=== PATIENT | male | born 1995 | race Caucasian/White ===

== ENCOUNTER 2023-10-15 21:53 | Emergency (ER) | payer MEDICAID, SELFPAY ==
--- NOTE | ~2023-10-15 | XR_ITS ---
EXAMINATION: XR chest 2V DATE: 10/16/2023 01:04 INDICATION: Intermittent chest tightness TECHNIQUE: PA and lateral views of the chest were obtained. COMPARISON: None FINDINGS: Azygos lobe and fissure at the right upper lung zone. No other airspace opacities, pulmonary edema, p leural effusion or pneumothorax. The cardiomediastinal silhouette is normal. Small amount of excreted contrast seen at the left renal collecting system from the immediately prior contrast enhanced CT of the abdomen and pelvis. Bones are unremarkable. IMPRESSION: 1. No acute cardiopulmonary disease. Reviewed, dictated and finalized at location A. TE CONTROL MIRROR INSTALLER
--- NOTE | ~2023-10-15 | CT_ITS ---
EXAMINATION: CT abdomen pelvis w con DATE: 10/16/2023 01:03 INDICATION: n/v/d, WBC count 25 TECHNIQUE: Computed tomography (CT) of the abdomen and pelvis was performed with 100 mL Omnipaque-350 intravenous contrast. Automated exposure control and iterative reconstruction technique were employe d. The dose-length product was 269.59 mGy-cm. COMPARISON: None. FINDINGS: Lower thorax: Unremarkable Liver: Normal. Biliary/Gallbladder: Gallbladder is normal. No bile duct dilation. Pancreas: No mass or duct dilation. Spleen: Normal. Adrenals:No mass. Kidneys: Absent right kidney. No suspicious mass or calcification in the right kidney. Mild right pel vocaliectasis. GI tract: No small or large bowel dilation. Normal appendix. Mesentery/Peritoneum: No ascites, mass, or free air. Retroperitoneum: No mass. Pelvis: Pelvic organs are within normal limits. Soft Tissues: Soft tissues and body wall unremarkable. Bones: No acute osseous finding. IMPRESSION: No acute abdominal pelvic process detected. Reviewed, dictated and finalized at location K. T ECOLOGIST
--- NOTE | 2023-10-15 21:55 | ECG_ITS ---
Measurements Intervals [place] Rate: 121 P: 76 OK: 152 QRS: 98 QRSD: 81 T: 57 QT: 330 QTc: 469 Interpretive Statements SINUS TACHYCARDIA BORDERLINE RIGHT AXIS DEVIATION [QRS AXIS > 90] ABNORMAL RHYTHM ECG NO PREVIOUS ECG AVAILABLE FOR COMPARISON Electronically Signed On 10-16-2023 8:07:10 BUCKLE COVERER by Yoel Phelps M.D.
[2023-10-15 21:56] VITALS: BP 107/75; PULSE 116; RESP 20; TEMP 36; O2SAT 99
[2023-10-15 22:22] LABS: Basophils Absolute Auto 0.1 K/mm3 (0.0-0.1); Basophils Percent Auto 0.4 % (0.2-1.2); Eosinophils Absolute Auto 0.1 K/mm3 (0-0.3); Eosinophils Percent Auto 0.2 % (0-4.4); Hematocrit 53.5 % (42.0-52.0); Hemoglobin 17.5 g/dL (14.0-18.0); Immature Granulocyte Absolute 0.14 K/mm3 (0.00-0.031); Immature Granulocyte Percent A 0.5 % (0-0.5); Lymphocytes Absolute Auto 1.12 K/mm3 (0.9-3.2); Lymphocytes Percent Auto 4.3 % (18.3-44.2); Mean Corpuscular HGB Conc 32.7 g/dl (32-36); Mean Corpuscular Hemoglobin 29.9 pg (26-34); Mean Corpuscular Volume 91.3 fl (80-100); Mean Platelet Volume 9.8 fl (7.4-10.4); Monocytes Absolute Auto 1.6 K/mm3 (0.1-0.6); Monocytes Percent Auto 6.2 % (2.6-8.5); Neutrophils Absolute Auto 22.7 K/mm3 (1.3-6.7); Neutrophils Percent Auto 88.4 % (45.5-73.1); Platelet Count Result 297 k/mm3 (150-375); Red Blood Count 5.86 M/mm3 (4.6-6.20); Red Cell Distribution Width 12.4 % (11.5-14.5); White Blood Count 25.8 K/mm3 (4.5-10.0)
[2023-10-15 22:33] LABS: Alanine Aminotransferase 19 U/L (6-50); Albumin Level 5.4 g/dL (3.5-5.1); Alkaline Phosphatase 77 U/L (38-126); Anion Gap 10 mmol/L (8-16); Aspartate Amino Transferase 28 U/L (17-59); Bilirubin,Total 0.8 mg/dL (0.2-1.3); Blood Urea Nitrogen 22 mg/dL (9-20); Calcium 10.5 mg/dL (8.4-10.2); Carbon Dioxide 29 mmol/L (22-30); Chloride 101 mmol/L (98-107); Estimated CRCL calculation 88 ml/min; Estimated Glomerular Filt Rate > 60; Glucose 141 mg/dL (65-110); Lipase 48 U/L (23-300); Potassium 4.1 mmol/L (3.4-5.0); Sodium 140 mmol/L (137-145)
[2023-10-15 22:40] LABS: Appearance Urine Clear (Clear); Bacteria Urine None Seen /hpf; Bilirubin Urine Negative (Negative); Blood Urine Negative (Negative); Color Urine Yellow (Yellow); Glucose Urine UA Negative (Negative); Ketones Urine Trace mg/dL (Negative); Leukocyte Esterase Ur Negative LEU/UL (Negative); Need Manual Microscopic Reviewed; Nitrate Urine Negative (Negative); Protein Urine 1+ mg/dL (Negative); RBC Urine 0-2 /hpf (0-2); Specific Grav Ur 1.024 (1.001-1.035); Squamous Epithelial Cell Urine None seen /hpf (Few); Urobilinogen Urine 0.2 mg/dL (<2.0); WBC Urine 0-5 /hpf; pH Urine 5.5 (5.0-9.0)
[2023-10-15 22:52] LABS: Add Urine Microscopic? YES
[2023-10-15 22:59] LABS: Influenza A QL RT-PCR Negative (Negative); Influenza B QL RT-PCR Negative (Negative); RSV RNA, RT-PCR Negative (Negative); SARS-CoV-2 RNA PCR Negative (Negative)
[2023-10-15 23:41] VITALS: BP 139/86; PULSE 111; RESP 16; TEMP 37.1; O2SAT 95
[2023-10-15 23:43] VITALS: BP 136/84; PULSE 104
[2023-10-15 23:45] VITALS: BP 121/88; PULSE 118
[2023-10-15 23:46] VITALS: BP 109/69; PULSE 133
[2023-10-16] VITALS (13 sets, daily range): BP systolic 86–133; BP diastolic 44–86; PULSE 84–132; RESP 15–16; O2SAT 97–100
--- NOTE | 2023-10-16 00:24 | ED.NAVMDI ---
HPI - Nausea/Vomiting/Diarrhea General Chief complaint: Nausea/Vomiting/Diarrhea <Ethel Lee PA-C - Last Filed: 10/16/23 04:18> Stated complaint: chest pain, N/V/D <Ethel Lee PA-C - Last Filed: 10/16/23 04:18> Time Seen by Provider: 10/16/23 00:11 <Ethel Lee PA-C - Last Filed: 10/16/23 04:18> History of Present Illness HPI Narrative: 28-year-old male with a known history of right sided renal agenesis reports for evaluation for nausea, vomiting and diarrhea that started today after eating dairy Vickers today at lunch. Patient states he did spicy cheeseburger and shortly after began developing nausea, vomiting diarrhea. Reports multiple episodes of emesis and watery diarrhea. States vomiting diarrhea has since resolved he continues to feel nauseous. He reports intermittent chest tightness in the epigastrium and right inferior chest for the past few days. States this is worse when eating spicy foods and pizza sauce. Describes the chest pain is ?bubbles?. Denies current chest pain. Patient states he has concern for reflux. Denies hematemesis, melena or hematochezia, cough or congestion, fever. Reports generalized abdominal discomfort but denies pain. States he feels fatigued and has generalized body aches from vomiting as well as a headache. <Ethel Lee PA-C - Last Filed: 10/16/23 04:18> Related Data Allergies/Adverse reactions: Allergies Allergy/AdvReac Type Severity Reaction Status Date / Time Penicillins Allergy Unknown HIVES Verified 10/15/23 21:59 <Ethel Lee PA-C - Last Filed: 10/16/23 04:18> Review of Systems Review of Systems: CONSTITUTIONAL: Denies fever, chills, or sweats. EYES: Denies visual changes, redness, or discharge. ENT: Denies rhinorrhea, congestion, sore throat, or otalgia. CARDIOVASCULAR: Denies chest pain, palpitations, or edema. RESPIRATORY: Denies cough or dyspnea. GASTROINTESTINAL: See HPI GENITOURINARY: Denies dysuria or hematuria. SKIN: Denies rash or itching. MUSCULOSKELETAL: Denies back pain, joint pain, or myalgia. NEUROLOGIC: Denies headache, numbness, or weakness. PSYCHIATRIC: Denies anxiety or depression. <Ethel Lee PA-C - Last Filed: 10/16/23 04:18> Exam Narrative: GENERAL: Well-appearing, well-nourished, and in no acute distress. HEAD: Normocephalic, atraumatic. EYES: PERRLA and EOMI. ENT: Nares clear, no rhinorrhea or epistaxis. Mucous membranes moist. NECK: Supple. CHEST: Clear to auscultation. No respiratory distress. HEART: Regular rate and rhythm. No murmur heard. Normal peripheral pulses. ABDOMEN: Normoactive bowel sounds. Abdomen soft with generalized tenderness. No guarding, rebound or rigidity. Negative Barboza's and McBurney's. No CVA tenderness. EXTREMITIES: Normal range of motion. No edema. SKIN: Warm, dry, no rash. NEURO: No focal deficits. Alert and oriented x3. Cranial nerves 2-12 intact. Strength 5/5 in BUE and BLE. Sensation intact throughout. Normal elaage-cm-pkjh. No pronator drift. <Ethel Lee PA-C - Last Filed: 10/16/23 04:18> Course DUDE WRANGLER/PA Physician Supervision For this patient encounter, I reviewed the DUDE WRANGLER or PA documentation, treatment plan, and medical decision making and I had [id number] time with this patient. I performed all aspects of the MDM as documented. <Erick Pichardo DO - Last Filed: 10/16/23 06:47> Vital Signs Vital signs: Vital Signs Temperature 96.8 F L 10/15/23 21:56 Pulse Rate 116 H 10/15/23 21:56 Respiratory Rate 20 10/15/23 21:56 Blood Pressure 107/75 10/15/23 21:56 Pulse Oximetry 99 10/15/23 21:56 Oxygen Delivery Room Air 10/15/23 21:56 Temperature 98.8 F 10/15/23 23:41 Pulse Rate 84 10/16/23 04:12 Respiratory Rate 16 10/16/23 04:12 Blood Pressure 110/57 L 10/16/23 04:12 Pulse Oximetry 99 10/16/23 04:12 Oxygen Delivery Room Air 10/15/23 21:56 <Ethel Lee PA-C - Last Filed
[2023-10-16] MEDS: SODIUM CHLORIDE 0.9% IV 1,000 ML 999 ML IV CONT ×4 (00:43→03:35)
[2023-10-16] MEDS: diphenhydrAMINE HCl INJ 50 MG/ML VIAL 25 MG IV PUSH (00:43)
[2023-10-16] MEDS: KETOROLAC 30 MG/ML VIAL (*BKC) IV PUSH (00:44)
[2023-10-16] MEDS: PROCHLORPERAZINE EDISYLATE 10 MG/2 ML VIAL IV PUSH (00:45)
[2023-10-16 01:14] LABS: Magnesium 2.1 mg/dL (1.6-2.3)
[2023-10-16 01:22] LABS: Troponin I < 0.012 ng/mL (0.000-0.034)
[2023-10-16 01:31] LABS: Lactic Acid Reflex 1.1 mmol/L (0.7-2.0)
== END 2023-10-16 04:28 | disposition home or self-care (01) ==
PROVIDERS: Student in an Organized Health Care Education/Training Program; Emergency Provider Physician Assistant
DX: K52.9 Noninfective gastroenteritis and colitis, unspecified (principal); K21.9 Gastro-esophageal reflux disease without esophagitis; E86.0 Dehydration; D72.829 Elevated white blood cell count, unspecified; Z20.822 Contact with and (suspected) exposure to COVID-19; Q60.0 Renal agenesis, unilateral
CPT/HCPCS: 36415; 71046; 74177; 80053; 81001; 83605; 83690; 83735; 84484; 85025; 87637; 93005; 96361; 96374; 96375; 99284; J0780; J1200; J1885; J7030; Q9967

== ENCOUNTER 2024-10-05 16:04 | Emergency (ER) | payer BC, SELFPAY ==
--- NOTE | ~2024-10-05 | XR_ITS ---
EXAMINATION: XR chest 2V DATE: 10/05/2024 16:48 INDICATION: Influenza. Chest discomfort. TECHNIQUE: PA and lateral views of the chest were obtained. COMPARISON: Chest radiograph dated 10/16/2023 FINDINGS: Normal variant azygos lobe and fissure in the right upper lung zone. No airspace opacities, pulmonary edema, pleural effusion or pneumothorax. The cardiomediastinal silhouette is normal. Visualized bone s and soft tissues are unremarkable. IMPRESSION: 1. No acute cardiopulmonary disease. Reviewed, dictated and finalized at location B. [facility]
--- OUTSIDE RECORDS SUMMARY | 2024-10-05 16:08 | XMS_ITS | Data Portability ---
Author Organization [place] - [facility], [facility] Address [address] [place] [id number] Care Team Providers Care Jackhammer Operator Name Role Phone TE ROSE Primary Care Provider Assessment No assessment recorded. Plan of Treatment Reminders Order Date Submit Date Provider Last Modified By Organization Details Last Modified Time Details Appointments None recorded. Lab rapid SARS CoV + SARS CoV 2 Ag, QL IA, respiratory specimen [address], [address] [place] [address], [id number], 4 13:04:44 rapid flu (A+B) [address], [address] [place] [address], [address], 4 13:05:09 rapid strep group A, throat [address], [address] [place] [address], [address], 4 13:04:33 urinalysis, dipstick, auto 2023 024 [email or web address] [facility], [address] [place] [address], [address], 4 12:16:03 culture, urine 2023 024 [facility] Registration Dept[facility] [address] [place] [address], [address], 4 12:48:24 rapid flu (A+B) 2024 025 [email or web address]9 8 [facility], [address] [place] [address], [address], 5 09:46:57 rapid SARS CoV + SARS CoV 2 Ag, QL IA, respiratory specimen 2024 025 [email or web address]9 8 [facility], [address] [place] [address], [address], 5 09:57:46 Referral None recorded. Procedures None recorded. Surgeries None recorded. Imaging XR, cervical spine, 2 or 3 view 2023 024 [place] [address] 0 [facility] Registration Dept., [address] [place] [address], [address], 4 09:37:14 XR, lumbar spine 2023 024 [place] [address] [facility] Registration Dept., [address] [place] [address], [address], 4 09:37:14 Medication Orders Zithromax Z-Denis 250 mg tablet [email or web address] [place] [address] Pharm[address] [place], [address], 4 11:35:32 oseltamivir 75 mg capsule 2024 025 [id number], [address], [place], [id number], 5 09:57:44 Patient TargetsNo targets recorded. Patient InstructionsNo instructions recorded. Reason for Referral None Reported. Results Created Date Observation Date Name Description Value Unit Range Abnormal Flag Note LastModifiedBy Organization Detail LastModifiedTime 10/18/1910/18/2023 rapid flu (A+B) influenza A negati ve negati ve normal Not Available [address], [address], 10/18/2023 12:50:54 10/18/19 24 10/18/2023 rapid flu (A+B) influenza B negati ve negati ve normal Not Available [address], [address], 10/18/2023 12:50:54 10/18/19 24 10/18/2023 rapid flu (A+B) control accept able accept able Not Available [address], [address], 10/18/2023 12:50:54 10/18/19 24 10/18/2023 rapid SARS CoV + SARS CoV 2 Ag, QL IA, respi rator y speci men id now covid 19 negati ve negati ve Not Available [address], [address], 10/18/2023 12:50:53 10/18/19 24 10/18/2023 rapid strep group A, throa t STREP A negati ve Not Available [address], [address], 10/18/2023 12:32:33 10/18/19 24 10/18/2023 rapid strep group A, throa t Strep negati ve Not Available [address], [address], 10/18/2023 12:32:33 07/18/20 24 07/18/2024 urina lysis , dipst ick, auto Leukocytes (reference Rage: Negative seema/mcg) Negati ve Not Available [address], [address], 07/18/2024 11:36:22 07/18/20 24 07/18/2024 urina lysis , dipst ick, auto Nitrite (reference rage: Negative mg/dL) negati ve Not Available [address], [address], 07/18/2024 11:36:22 07/18/20 24 07/18/2024 urina lysis , dipst ick, auto Urobilinogen (reference range: 0.2-1 ng/dL) 0.2 Not Available [address], [address], 07/18/2024 11:36:22 07/18/20 24 07/18/2024 urina lysis , dipst ick, auto Protein (reference range: negative mg/dL): Negati ve Not Available [address], [address], 07/18/2024 11:36:22 07/18/20 24 07/18/2024 urina lysis , dipst ick, auto pH (reference range: 5-7) 7.5 Not Available [address], [address], 07/18/2024 11:36:22 07/18/20 24 07/18/2024 urina lysis , dipst ick, auto Blood (reference range: negative Negati ve Not Available [address], [address], 07/18/2024 11:36:22 07/18/20 24 07/18/2024 urina lysis , dipst ick, auto Specific Rose (reference range 1.005-1.030) 1.015 Not Available [address], [address], 07/18/2024 11:36:22 07/18/20 24 07/18/2024 urina lysis , dipst ick, auto Ketone (reference range: negative mg/dL) Negati ve Not Available [address], [address], 07/18/2024 11:36:22 07/18/20 24 07/18/2024 urina lysis , dipst ick, auto Bilirubin (reference range: negative mg/dL) Negati ve Not Available [address], [address], 07/18/2024 11:36:22 07/18/20 24 07/18/2024 urina lysis , dipst ick, auto Glucose (reference range: negative mg/dL) Negati ve Not Available [address], [address], 07/18/2024 11:36:22 07/18/20 24 07/18/2024 urina lysis , dipst ick, auto Appearance Clear Not Available [address], [address], 07/18/2024 11:36:22 07/18/20 24 07/18/2024 urina lysis , dipst ick, auto Color Yellow Not Available [address], [address], 07/18/2024 11:36:22 10/03/19 25 10/03/2024 rapid SARS CoV + SARS CoV 2 Ag, QL IA, respi rator y speci men id now covid 19 negati ve negati ve Not Available [address], [address], 10/03/2024 09:32:30 10/03/19 25 10/03/2024 rapid flu (A+B) influenza A positi ve negati ve abnormal Not Available [address], [address], 10/03/2024 09:32:09 10/03/19 25 10/03/2024 rapid flu (A+B) influenza B negati ve negati ve normal Not Available [address], [address], 10/03/2024 09:32:09 10/03/19 25 10/03/2024 rapid flu (A+B) control accept able accept able Not Available [address], [address], 10/03/2024 09:32:09 Result Notes None recorded. Problems Name Problem SNOMED Code Status Onset Date Resolution Date Notes Provider Name and Address Organization Details Recorded Time Pain in throat 982966303 Active 024 Alyssa daily, [facility] 4 12:32:34 Low back pain 225772425 Active 024 Alyssa Holder ENVIRONMENTAL EDUCATION SPECIALIST [address] [place] [address], [address] , [facility] 4 12:14:49 Neck pain 67208044 Active 024 Alyssa Holder ENVIRONMENTAL EDUCATION SPECIALIST [address] [place] [address], [address] , [facility] 4 12:19:16 Fever 659842262 Active 025 Radha daily, [facility] 5 09:32:17 Influenza caused by Influenza A virus 379716597 Active 025 Yasmine Ferro, ENVIRONMENTAL EDUCATION SPECIALIST [address] [place] [address], [address] , [facility] 5 09:46:36 Problem Notes None recorded. Procedures Surgical History Date Name Laterality Status Provider Name and Address Organization Details Recorded Time Tonsillectomy completed Fanny Cain [facility] 07/18/2024 11:43:16 Imaging Results None recorded. Procedure Notes None recorded. Medical Equipment None Reported. Allergies Allergen ID Allergen Name Allergen Category Reaction Reaction Severity Criticality Documentation Date Start Date Code Code System Note Provider Name and Address Organization Details Recorded Time Product containin g penicilli n and antibioti c (product) medicatio n hives Not available Not available 10/18/2023 80080 05 SNOMED Alyssa Sweet [facility] 4 12:30:48 Medications Name Sig Start Date Stop Date Status Note LastModified by Organization Details LastModified Time azithromycin 250 mg tablet TAKE 2 TABLETS BY MOUTH ON DAY 1, AND THEN TAKE 1 TABLET BY MOUTH ONCE A DAY ON DAY 2 THROUGH DAY 5 07/18 completed Not Available Not Available Not Available hydrocodone 5 mg-acetamino phen 325 mg tablet TAKE 1 TABLET BY MOUTH EVERY 6 HOURS NEEDED 10/18 completed Not Available Not Available Not Available hydrocodone 7.5 mg-acetamino phen 325 mg tablet TAKE 1 TABLET BY MOUTH EVERY 6 HOURS NEEDED 10/18 completed Not Available Not Available Not Available oseltamivir 75 mg capsule Take 1 capsule twice a day by oral route for 5 days. 2024 active Not Available Not Available Not Avai lable Vitals Date Recorded Body height Body mass index (BMI) Body weight Body temperature Heart rate Oxygen saturation Oxygen saturation in Arterial blood by Pulse oximetry Respiratory rate Pain severity - 0-10 verbal numeric rating [Score] - Reported Systolic blood pressure Diastolic blood pressure Provider Name and Address Organization Details Last Updated DateTime 4 180.34 cm 23.7 kg/m2 12804.7 g 97.4 [degF] 68 /min 98 % 98 % 16 /min 4 112 mm[Hg] 82 mm[Hg] Alyssa Sweet [facility] 4 12:23:44 Date Recorded Body height Pain severity - 0-10 verbal numeric rating [Score] - Reported Body mass index (BMI) Body weight Body temperature Heart rate Respiratory rate Oxygen saturation Oxygen saturation in Arterial blood by Pulse oximetry Systolic blood pressure Diastolic blood pressure Provider Name and Address Organization Details Last Updated DateTime 4 180.34 cm 4 23.7 kg/m2 17164.7 g 97.4 [degF] 61 /min 18 /min 99 % 99 % 108 mm[Hg] 72 mm[Hg] Fanny Cain [facility] 4 11:42:33 Date Recorded Body height Body mass index (BMI) Body weight Body temperature Heart rate Respiratory rate Oxygen saturation Oxygen saturation in Arterial blood by Pulse oximetry Systolic blood pressure Diastolic blood pressure Provider Name and Address Organization Details Last Updated DateTime 5 180.34 cm 23.4 kg/m2 92155.5 2 g 99.8 [degF] 107 /min 18 /min 97 % 97 % 140 mm[Hg] 70 mm[Hg] Radha Jaison [facility] 5 09:34:29 Social History Question Answer Notes LastModified by Organizat ion Details LastModified Time Tobacco Smoking Status Never Smoker Alyssa daily [facility] 10/18/2023 12:31:24 What Is Your Level Of Alcohol Consumption? None Information not available 10/18/2023 What Is Your Level Of Caffeine Consumption? Occasional Information not available 10/18/2023 In The 14 Days Before Symptom Onset, Have You Had Close Contact With A Laboratory-confirm ed COVID-19 While That Case Was Ill? No Information n ot available 10/18/2023 In The 14 Days Before Symptom Onset, Have You Had Close Contact With A Person Who Is Under Investigation For COVID-19 While That Person Was Ill? No Information not available 10/18/2023 Do You Feel Hopeless Or Helpless No Information not available 10/18/2023 Have You Had Thoughts Of Suicide? No Information not available 10/18/2023 Are You Having Any Suicidal Thoughts Now? No Information not available 10/18/2023 Have You Previously Attempted Suicide? No Information n ot available 10/18/2023 Do You Have A Plan To Hurt Yourself Or Others? No Information not available 10/18/2023 Has A Family Member Or Someone Close To You Committed Suicide Or Have You Been A Witness To Suicide? No Information not available 10/18/2023 Have You Fallen In The Last 3 Months? No Information n ot available 10/18/2023 What Was The Date Of Your Most Recent Tobacco Screening? 10/03/2024 [email or web address] Information not available 10/03/2024 Have You Recently Traveled Abroad? No Information not available 10/18/2023 Do You Or Have You Ever Used Any Other Forms Of Tobacco Or Nicotine? No [email or web address] Information not available 07/18/2024 Sex: Unknown Functional Status None recorded. Mental Status None recorded. Family History Nothing Reported. Medical History No medical history recorded. Past Encounters Encounter ID Performer Location Encounter Start Date Encounter Closed Date Diagnosis/Indication Diagnosis SNOMED-CT Code Diagnosis ICD10 Code Diagnosis Note [id number] Jacquelyn Sharp NP [address] [address] 10/18/2023 12:14:59 10/18/2023 13:39:30 Pain in throat 691353953 R07.0 see above Exposure t o streptococcal pharyngitis 4580125421 105 Z20.818 Entire family has strep throatStar t abxIncreas e PO fluidsYou are contagious for at least 24 hours after starting antibiotic s or after your fever is goneUse simple analgesics (ibuprofen or acetaminop hen per age), salt water gargles or lozenges.S ymptomatic family members should seek medical attention. Replace your old toothbrush after you have been on the antibiotic s for 3 daysDo not drink or eat after other peopleRTC if no improvemen tER precaution s advised [id number] Alyssa Holder NP [address] [address] 07/18/2024 11:02:53 07/19/2024 05:49:05 Low back pain 838207405 M54.50 -likely 2/2 MSK-UA negative POC testing, will send for culture-he does have 1 kidney and has had previous infection- recommend to take tylenol athritis versus ibuprofenX ray pending-lo w back is tight Neck pain 50439723 M54.2 likely MSK, positionin g and recent fallno deformityt ight musclesrec ommend APAP vs NSAIDXray pending [id number] Yasmine Ferro NP [address] [address] 10/03/2024 09:07:24 10/04/2024 04:19:39 Fever 148737263 R50.9 -COVID-19- .-See note above. Influenza caused by Influenza A virus 739502572 J09.X2 -Influenza A+. Viral/self limited etiology discussed. BP, HR elevated likely d/t acute illness, otherwise vital signs WNL w/ no findings suggestive of emergent etiology at this time.-Pt to rest, drink plenty of fluids/janay ctrolytes, and may take OTC acetaminop hen/ibupro fen as needed for fever/pain if not contraindi cated. Additional OTC symptomati c treatments discussed. -Pt to begin medication as prescribed . Medication education provided.- Pt to follow-up w/ PCP or return to clinic if symptoms fail to improve, sooner for worsening. Red flag symptoms and when to seek emergency care discussed. -Pt verbalizes understand ing and is agreeable to plan of care. Health Concerns Section Related Observation LastModified by Organization Detai ls LastModified Time None Recorded Concern Status LastModified by Organization Details LastModified Time None Recorded Advance Directives Directive None Recorded Payers Encounter Date Sequence Insurance Name Policy Number Policy Magaña Covered Member ID Magaña Member ID Guarantor Name 10/18/2023 1 [place] [id number] Yahir Torrez [id number] [employer] Torrez 07/18/2024 1 [place] [id number] Yahir Torrez [id number] Yahir Torrez 07/18/2024 2 [place] [employer] [place] Yahir Torrez [id number] Yahir Torrez 10/03/2024 1 [place] [id number] Yahir Torrez [id number] Yahir Torrez 10/03/2024 2 [place] Yahir Torrez [id number] Yahir Torrez Notes Date Note Type Note Provider Name and Address Organization Details Recorded Time 10/18/2023 text/html 28 y/o male pres ents to clinic today for a sore throat, MERCADO. body aches,ONSET: last nightOTC: tylenol Jacquelyn Sharp ENVIRONMENTAL EDUCATION SPECIALIST [address] [facility], [place], [address], [facility] 10/18/2023 13:13:14 07/18/2024 text/html 29 y/o male pres ents for low back pain, pt only has 1 kidney, was born with only one, the left he thinks. 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, sometimes pain from low back to neck.Sometimes looking down onto phone or turning head feels tightness in his neck.H/O kidney stone and infection 8 years agoThis has been ongoing for a week, takes ibuprofen occasionally for thisOf note he did fall off of a ladder 2-3 months onto his right side and did not need any immediate treatmentEndorses he does not drink enough fluid Alyssa Holder ENVIRONMENTAL EDUCATION SPECIALIST [address] [place], [address], [facility] 07/18/2024 19:48:17 10/03/2024 text/html 29 y/o male pres ents in clinic c/o productive cough, fever, congestion, chills, MERCADO, and sore throat that began yesterday. Pt reports appropriate fluid intake and is urinating adequately. Pt denies hx chronic respiratory disease other than mild childhood asthma. Pt has taken OTC ibuprofen w/ some relief. Yasmine Ferro NP [address] [place] [address], [address], [facility] 10/03/2024 10:01:46
--- OUTSIDE RECORDS SUMMARY | 2024-10-05 16:08 | XMS_ITS | Clinical Summary ---
Author Organization [facility] Address [address] [facility] [place] [address] Care Team Providers Care Components Engineer Name Role Phone Yoel Nieves MD Primary Care Provider [phone] Source Comments [facility],non-[facility] Affiliates and Associated Physician Practices is amultiple site organization consisting of ambulatory clinics and hospital sitesin [place], [place], [place] and [place]. This disclosure is being madepursuant to the Care Everywhere program and may not contain all information available regarding this patient. Last updated 18.[facility] Allergies Active Allergy Reactions Criticality Noted Date Comments Penicillins Urticaria Medium 09/11/2017 Medications * Be aware that medications may not be up to date on this document. Alwaysverify current medications with the patient. 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 (F LUZONE; FLULAVAL; FLUARIX; AFLURIA QUADRIVALENT; 6MO+), 0.5 ML (IIV4) 06/02/2021,07/10/2020,08/16/2019,06/26,06/27/2017 MENINGOCOCCAL CONJUGATE (MCV4P) 11/04/2016 MMR 11/10/2016 POLIO IPV 11/04/2016 TDAP (7yrs+) 11/04/2016 Family History Medical History Relation Name Comments Diabetes; unknown type Maternal Aunt Diabetes - Type 1 Mother Renal Disease Mother Relation Name Status Comments Father Maternal Aunt Mother Alive Social History Tobacco Use Types Packs/Day Years Used Date Smoking Tobacco: Former Cigarettes Q uit: 2021 Smokeless Tobacco: Never Tobacco Cessation:Counseling Given: Not Answered Alcohol Use Standard Drinks/Week Comments Yes 0 (1 standard drink = 0.6 oz pur e alcohol) PHQ-2 Answer Date Recorded Patient Health Questionnaire-2 Score 0 03/29/2024 Sex and Gender Information Value Date Recorded Sex Assigned at Male 03/24/2024 7:57 PM CDT Gender Identity Male 03/24/2024 7:57 PM CDT Sexual Orientation Not on file Last Filed Vital Signs Vital Sign Reading Time Taken Comments Blood Pressure 117/70 05/08/2024 11:05 AM CDT Pulse 66 05/08/2024 11:05 AM CDT Temperature 37 C (98.6 F) 03/29/2024 9:41 AM CDT Respiratory Rate 20 04/25/2024 9:22 AM CDT Oxygen Saturation 100% 05/08/2024 11:05 AM CDT Inhaled Oxygen Concentration - - Weight 76.4 kg (168 lb 6.4 oz) 05/08/2024 11:05 AM CDT Height 177.8 cm (5' 10 ) 05/08/2024 11:05 AM CDT Body Mass Index 24.16 05/08/2024 11:05 AM CDT Plan of Treatment Health Maintenance Due Date Last Done Comments COVID-19 VACCINE ( season) 2024 INFLUENZA VACCINE (#1) 2024 , 07/10/2020, 08/16/2019, Additional history exists DEPRESSION SCREENING 08/29/2024 03/29/2024, 01/12/20 23 DTAP/TDAP/TD VACCINES (2 - Td or Tdap) 11/04/2026 11/04/2016 ZOSTER VACCINE (1 of 2) 02/26/2046 MENINGOCOCCAL VACCINE Aged Out 11/04/2016 No ayo andrey eligible based on patient's age to complete this topic HEPATITIS B VACCINE Completed 06/29/2017, 12/20/2016, 11/10/2016 HPV VACCINE Completed 03/15/2018, 09/2017, 06/29/2017 HEPATITIS C SCREENING Discontinued HIB VACCINE Aged Out No longer eligi ble based on patient's age to complete this topic HIV SCREENING Discontinued MENINGOCOCCAL (Group B) VACCINE Aged Out No longer eligible based on patient's age to complete this topic PNEUMOCOCCAL VACCINE Aged Out No long er eligible based on patient's age to complete this topic Care Teams Components Engineer Relationship Specialty Start Date End Date Yoel Nieves MD [address] [phone] PCP - General Family Medicine 03/29/24
--- OUTSIDE RECORDS SUMMARY | 2024-10-05 16:08 | XMS_ITS | Patient Health Summary ---
Author Organization [facility] Address [address] [place] [address] Care Team Providers Care Sap Technical Developer Name Role Phone Yoel Nieves MD Primary Care Provider [phone] Note from [facility],non-owned Affiliates and Associated Physician Practices is amultiple site organization consisting of ambulatory clinics and hospital sitesin [place], [place], [place] and [place]. This disclosure is being madepursuant to the Care Everywhere program and may not contain all information available regarding this patient. Last updated 18.[facility] Allergies * Penicillins(Urticaria) -Medium Criticality Medications * Be aware that medications may not be up to date on this document. Alwaysverify current medications with the patient. 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 (FLUZONE; FLULAVAL; FLUARIX; AFLURIA QUADRIVALENT; 6MO+), 0.5 ML (IIV4)(Given 06/02/2021, 07/10/2020, 08/16/2019, 06/26/2018, 06/27/2017) * MENINGOCOCCAL CONJUGATE (MCV4P)(Given 11/04/2016) * MMR(Given 11/10/2016) * POLIO IPV(Given 11/04/2016) * TDAP (7yrs+)(Given 11/04/2016) Social History Tobacco Use Types Packs/Day Years [...] Mass Index 24.16 05/08/2024 11:05 AM CDT Procedures * IMAGING/RADIOLOGY/XRAY RESULTS ORDER(Performed 05/22/2024) * TSH(Performed 05/10/2024) Performed for Low glucose level * BASIC METABOLIC PANEL (CALCIUM TOTAL)(Performed 05/10/2024) Performed for Low glucose level * METANEPHRINES FRACTIONATED PLASMA(Performed 05/10/2024) Performed for Low glucose level * CORTISOL BLOOD AM(Performed 05/10/2024) Performed for Low glucose level * IMAGING/RADIOLOGY/XRAY RESULTS ORDER(Performed 05/01/2024) * MRI BRAIN WO CONTRAST(Performed 05/01/2024) Performed for Acute intractable headache, unspecified headache type * IMAGING/RADIOLOGY/XRAY RESULTS ORDER(Performed 04/16/2024) * URIC ACID BLOOD(Performed 03/29/2024) * ERYTHROCYTE SEDIMENTATION RATE(Performed 03/29/2024) Performed for Acute foot pain, right * HEMOGLOBIN A1C(Performed 03/29/2024) Performed for Family history of diabetes mellitus * COMPREHENSIVE METABOLIC PANEL(Performed 03/29/2024) Performed for Acute foot pain, right, Family history of diabetes mellitus * CBC W AUTO DIFFERENTIAL(Performed 03/29/2024) Performed for Acute foot pain, right * TSH REFLEX FREE T4(Performed 01/12/2023) Performed for Hyperglycemia without ketosis * HEMOGLOBIN A1C(Performed 01/12/2023) Performed for Hyperglycemia without ketosis * COMPREHENSIVE METABOLIC PANEL(Performed 01/12/2023) Performed for Hyperglycemia without ketosis * CBC W AUTO DIFFERENTIAL(Performed 01/12/2023) Performed for Hyperglycemia without ketosis * CULTURE URINE(Performed 01/11/2023) Performed for Hyperglycemia without ketosis * URINALYSIS - POINT OF CARE(Performed 01/11/2023) Performed for Hyperglycemia without ketosis * STREP A SCREEN - POCT (IP) URGENT CARE(Performed 09/11/2017) Performed for Sore throat Results * IMAGING RADIOLOGY XRAY RESULTS ORDER (05/22/2024) Only the most recent of3 resultswithin the time period is included. Anatomical Region Laterality Modality Other 05/22/2024 Narrative 05/22/2024 Ordered by an unspecified provider. Scanned Document IMAGING * METANEPHRINES FRACTIONATED PLASMA (05/10/2024 6:47 AM CDT) Metanephrine Fract Free 29 <=57 pg/mL [facility] Comment: This test was developed and its analytical performance characteristics have been determined by [employer] [place]. It has not been cleared or approved by the U.S. Food and Drug Administration. This assay has been validated pursuant to the CLIA regulations and is used for clinical purposes. Normetanephrine Free 58 <=148 pg/mL [facility] Comment: This test was developed and its analytical performance characteristics have been determined by [employer] [place]. It has not been cleared or approved by the U.S. Food and Drug Administration. This assay has been validated pursuant to the CLIA regulations and is used for clinical purposes. Free Metanephrine + Normetanephrine 87 <=205 pg/mL [facility] Comment: For additional information, please refer to http://education.Car[employer]/faq/MetFractFree (This link is being provided for informational/educatio informational/educational purposes only.) Elevations >4-fold upper reference range: strongly suggestive of a pheochromocytoma(1). Elevations >1- 4-fold upper reference range: significant but not diagnostic, may be due to medications or stress. Suggest running 24 hr urine fractionated metanephrines and/or serum Chromagranin A for confirmation. Reference: (1)Jenna Tan et al, Plasma Chromogranin A or Urine Fractionated Metanephrines Follow-Up Testing Improves the Diagnostic Accuracy of Plasma Fractionated Metanephrines for Pheochromocytoma. The Journal of Clinical Endocrinology # Metabolism 93(1), 91-95, 2008. This test was developed and its analytical performance characteristics have been determined by [employer] [place] [place]. It has not been cleared or approved by the U.S. Food and Drug Administration. This assay has been validated pursuant to the CLIA regulations and is used for clinical purposes. Test Performed at: [employer] [facility] MAI STAFFORD MD,PHD Blood BLOOD SPECIMEN / Unknown 05/10/2024 6:47 AM CDT 05/10/2024 6:47 AM CDT Erika Yin MD LAB - CHEMISTRY OR DERABLES Performing Organization Address [facility] Co de Phone Number [facility] [phone] [place], [place] [phone] * BASIC METABOLIC PANEL (BMP) (05/10/2024 6:47 AM CDT) Pathologist [facility] Glucose 86 65 - 99 mg/dL [facility] Comment: Fasting reference interval BUN 14 7 - 25 mg/dL [facility] Creatinine 1.03 0.60 - 1.24 mg/dL [facility] eGFR by Cystatin C 101 > OR = 60 mL/min/1. 73m2 [facility] BUN/Creatinine Ratio SEE NOTE: (calc) [facility] Comment: Not Reported: BUN and Creatinine are within reference range. Sodium 140 135 - 146 mmol/L [facility] Potassium 4.1 3.5 - 5.3 mmol/L [facility] Chloride 106 98 - 110 mmol/L [facility] CO2 29 20 - 32 mmol/L [facility] Calcium 9.2 8.6 - 10.3 mg/dL [facility] Comment: Test Performed at: [employer] [place] [id number] OCTAVIANO ABDUL MD Blood BLOOD SPECIMEN / Unknown 05/10/2024 6:47 AM CDT 05/10/2024 6:47 AM CDT Erika Yin MD LAB - CHEMISTRY OR DERABLES Performing Organization Address [facility] [place] [address] * TSH (05/10/2024 6:47 AM CDT) [facility] TSH 2.52 0.40 - 4.50 mIU/L [facility] Comment: Test Performed at: [facility] [address] [employer] [facility] [phone] OCTAVIANO ABDUL MD Blood BLOOD SPECIMEN / Unknown 05/10/2024 6:47 AM CDT 05/10/2024 6:47 AM CDT Erika Yin MD LAB - CHEMISTRY OR DERABLES Performing Organization Address [facility] [place] [address] * CORTISOL BLOOD AM (05/10/2024 6:47 AM CDT) Pathologist [facility] Cortisol AM 19.9 mcg/dL [facility] Comment: Reference Range 8 a.m. (7-9 a.m.) Specimen: 4.0-22.0 Test Performed at: [facility] [address] [place] [address] OCTAVIANO ABDUL MD Blood BLOOD SPECIMEN / Unknown 05/10/2024 6:47 AM CDT 05/10/2024 6:47 AM CDT Erika Yin MD LAB - CHEMISTRY OR DERABLES Performing Organization Address [facility] Co de Phone Number [facility] [address] [place] [address] * MRI Brain Wo Contrast (05/01/2024) Anatomical Region Laterality Modality Head Magnetic Resonan ce 05/01/2024 Fanny Ramirez [employer] MR ORDERABLES * URIC ACID BLOOD (03/29/2024 10:09 AM CDT) [facility] Uric Acid 5.5 4.0 - 8.0 mg/dL [facility] Comment: Therapeutic target for gout patients: <6.0 mg/dL Test Performed at: [facility] [place] [address] OCTAVIANO ABDUL MD 03/29/2024 10:0 9 AM CDT 03/29/2024 10:09 AM CDT Vinny Merrill [employer] LAB - CHEMISTR Y ORDERABLES Performing Organization Address [facility] Co de Phone Number [facility] [address] [place] [address] * HEMOGLOBIN A1C (HgbA1C) (03/29/2024 10:09 AM CDT) Only the most recent of2 resultswithin the time period is included. [facility] Hemoglobin A1c 5.3 <5.7 % of total Hgb [facility] Comment: For the purpose of screening for the presence of diabetes: <5.7% Consistent with the absence of diabetes 5.7-6.4% Consistent with increased risk for diabetes (prediabetes) > or =6.5% Consistent with diabetes This assay result is consistent with a decreased risk of diabetes. Currently, no consensus exists regarding use of hemoglobin A1c for diagnosis of diabetes in children. According to [place] Diabetes Association (ADA) guidelines, hemoglobin A1c <7.0% represents optimal control in non- diabetic patients. Different metrics may apply to specific patient populations. Standards of Medical Care in Diabetes(ADA). This test was performed on the Sunil nayeli c503 platform. Effective 11/14/23, a change in test platforms from the [employer] to the Sunil nayeli c503 may have shifted HbA1c results compared to historical results. Based on laboratory validation testing conducted at [facility], the Sunil platform relative to the Grimaldo platform had an average increase in HbA1c value of < or = 0.3%. This difference is within accepted variability established by the National Glycohemoglobin Standardization Program. Note that not all individuals will have had a shift in their results and direct comparisons between historical and current results for testing conducted on different platforms is not recommended. REPORT COMMENT: FASTING:NO Test Performed at: [facility] [address] OCTAVIANO ABDUL MD Blood BLOOD SPECIMEN / Unknown 03/29/2024 10:09 AM CDT 03/29/2024 10:09 AM CDT Vinny Merrill [employer] LAB - CHEMISTR Y ORDERABLES [address] [address] * SED RATE AUTO (ESR) (03/29/2024 10:09 AM CDT) Erythrocyte Sedimentation Rate Westergren 2 < OR = 15 mm/h [facility] Comment: Test Performed at: [employer] [facility] [address] [address] OCTAVIANO ABDUL MD Blood BLOOD SPECIMEN / Unknown 03/29/2024 10:09 AM CDT 03/29/2024 10:09 AM CDT Vinny Up Merrill [employer] LAB - HEMATOLO GY ORDERABLES [facility] [address] [place] [address] * CBC WITH DIFFERENTIAL (03/29/2024 10:09 AM CDT) Only the most recent of2 resultswithin the time period is included. White Blood Cell Count 8.0 3.8 - 10.8 Thousand/u L [facility] RBC 5.07 4.20 - 5.80 Million/uL [facility] Hemoglobin 15.3 13.2 - 17.1 g/dL [facility] Hematocrit 46.6 38.5 - 50.0 % [facility] MCV 91.9 80.0 - 100.0 fL [facility] MCH 30.2 27.0 - 33.0 pg [facility] MCHC 32.8 32.0 - 36.0 g/dL [facility] RDW 12.0 11.0 - 15.0 % [facility] Platelet Count 248 140 - 400 Thousand/u L [facility] MPV 10.2 7.5 - 12.5 fL [facility] Neutrophil Absolute 4200 1500 - 7800 cells/uL [facility] Absolute Bands [facility] Metamyelocytes Absolute [facility] Myelocytes Absolute [facility] Absolute Prolymphocytes [facility] Lymphocytes Absolute 3000 850 - 3900 cells/uL [facility] Absolute Monocytes 672 200 - 950 cells/uL [facility] Eosinophils Absolute 80 15 - 500 cells/uL [facility] Basophils Absolute 48 0 - 200 cells/uL [facility] Absolute Blasts [facility] nRBC Absolute [facility] Granulocytes % 52.5 % [facility] Band Neutrophil [facility] Metamyelocytes [facility] Myelocytes [facility] Promyelocytes [facility] Lymphocytes % 37.5 % [facility] Lymphocyte Reactive [facility] Monocytes % 8.4 % [facility] Eosinophils % 1.0 % [facility] Basophils % 0.6 % [facility] Comment: Test Performed at: [employer] [place] [address] OCTAVIANO ABDUL MD Blasts [facility] nRBC [facility] Comments [facility] Comment: Test Performed at: [facility] [address] [facility] [place] [address] OCTAVIANO ABDUL MD Blood BLOOD SPECIMEN / Unknown 03/29/2024 10:09 AM CDT 03/29/2024 10:09 AM CDT Vinny Merrill [employer] LAB - HEMATOLO GY ORDERABLES Performing Organization Address [facility] Co de Phone Number [facility] [address] [place] [address] * (ABNORMAL) COMPREHENSIVE METABOLIC PANEL (03/29/2024 10:09 AM CDT) Only the most recent of2 resultswithin the time period is included. Glucose 47(L) 65 - 139 mg/dL [facility] Comment: Non-fasting reference interval BUN 15 7 - 25 mg/dL [facility] Creatinine 1.05 0.60 - 1.24 mg/dL [facility] eGFR by Cystatin C 99 > OR = 60 mL/min/1. 73m2 [facility] BUN/Creatinine Ratio SEE NOTE: 6 - 22 (calc) [facility] Comment: Not Reported: BUN and Creatinine are within reference range. Sodium 142 135 - 146 mmol/L [facility] Potassium 4.2 3.5 - 5.3 mmol/L [facility] Chloride 104 98 - 110 mmol/L [facility] CO2 35(H) 20 - 32 mmol/L [facility] Calcium 9.7 8.6 - 10.3 mg/dL [facility] Protein Total 6.8 6.1 - 8.1 g/dL [facility] Albumin 4.4 3.6 - 5.1 g/dL [facility] Globulin Total 2.4 1.9 - 3.7 g/dL (calc) [facility] Albumin/Globulin Ratio 1.8 1.0 - 2.5 (calc) [facility] Bilirubin Total 0.4 0.2 - 1.2 mg/dL [facility] Alkaline Phosphatase 47 36 - 130 U/L [facility] AST 12 10 - 40 U/L [facility] ALT 9 9 - 46 U/L [facility] Comment: Test Performed at: [facility] [id number] [place] [id number] OCTAVIANO ABDUL MD Blood BLOOD SPECIMEN / Unknown 03/29/2024 10:09 AM CDT 03/29/2024 10:09 AM CDT Vinny Merrill APRN-[employer] LAB - CHEMISTR Y ORDERABLES Performing Organization Address [facility] Co de Phone Number [facility] [address] [place] [address] * TSH REFLEX FREE T4 (01/12/2023 6:48 AM CDT) [facility] TSH with Reflex FT4 1.67 0.40 - 4.50 mIU/L [facility] Comment: Test Performed at: [employer] [facility] [place] [address] [address] OCTAVIANO ABDUL MD Blood BLOOD SPECIMEN / Unknown 01/12/2023 6:48 AM CDT 01/12/2023 6:48 AM CDT Vinny Merrill [employer] LAB - CHEMISTR Y ORDERABLES [facility] [address] [place] [address] * CULTURE URINE (01/11/2023 4:09 PM CDT) [facility] Urine Culture Routine Final report [facility] ACCOUNT BILL Result 1 [facility] ACCOUNT BILL Comment: Culture shows less than 10,000 colony forming units of bacteria per milliliter of urine. This colony count is not generally considered to be clinically significant. Urine URINE SPECIMEN OBTAINED BY CLEAN CATCH PROCEDURE / Unknown 01/11/2023 4:09 PM CDT 01/11/2023 Narrative Resulting Agency Comment Lab Testing performed at: [facility] [address] [id number] Vinny Merrill [employer] LAB - MICROBIO LOGY ORDERABLES [facility] ACCOUNT BILL [address] [place] [address] * URINALYSIS - POINT OF CARE (01/11/2023 4:01 PM CDT) [facility] Clarity UA POCT CLEAR [facility] Color UA POCT YELLOW [facility] Leukocyte UA NEG Negative [facility] [place] Nitrite UA POCT NEG Negative [facility] Urobilinogen UA 0.2 0.1 - 1.0 [facility] Protein UA POCT NEG Negative [facility] pH UA 7.5 5.0 - 8.0 pH units [facility] [place] Blood UA NEG Negtive [facility] [place] Specific [place] UA POCT 1.010 1.002 - 1.030 [facility] Ketone UA NEG Negative [facility] Bilirubin UA POCT NEG Negative [facility] Glucose UA NEG Negative [facility] Urine URINE / Unknown 01/11/2023 4 :01 PM CDT Vinny Merrill [employer] LAB - POINT OF CARE ORDERABLES [facility] [address] [address], [facility] [phone] * (ABNORMAL) STREP A SCREEN - POCT (IP) URGENT CARE (09/11/2017 10:55 AM [facility]) Strep A Rapid POCT Positive(A ) Negative [facility] POCT TESTING QC Verified Yes Yes [facility] POC T TESTING Throat ENTIRE THROAT (SURFACE REGION OF NECK) / Unknown 09/11/2017 10:55 AM [facility] [employer] Mayra Santoyo [employer] LAB - POINT O F CARE ORDERABLES [facility] POCT TESTING [address] [phone] Care Teams Sap Technical Developer Relationship Specialty Start Date End Date Yoel Nieves MD [address] [address] PCP - General Family Medicine 03/29/24
--- OUTSIDE RECORDS SUMMARY | 2024-10-05 16:08 | XMS_ITS | Continuity of Care Document ---
Author Name [facility] Organization [facility] Care Team Providers Care Life Sciences Manager Name Role Phone [facility] Unavailable Unavailable Problems Combined list of problems from Department of Defense and Veterans Affairs facilities. It does not include entries that were removed or entered in error. Problem Status Onset Date Problem Type Date of Resolution Comme nts Source Renal agenesis, unilateral Active 12/21/2018 Condition DoD Tobacco use Active 09/14/2017 Condition DoD Low back pain Active Condition DoD Allergies, Adverse Reactions, Alerts Combined list of allergies from Department of Defense and Veterans Affairs facilities. It does not include entries that were removed or entered in error. Substance Category Reaction Severity Reaction type Status Date Reported Comments Source Penicillins Drug allergy (disorder) Rash active 7 [place] [address] Immunizations Combined list of available immunizations from the Department of Defense and Veterans Affairs facilities. 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 Source Influenza, injectable, quadrivalent, preservative free 1 2020 [id number] [employer] (SKB) complet ed Influenza , injectabl e, quadrival ent, preservat cely free DoD SARS-COV-2 (COVID-19) vaccine, UNSPECIFIED 0 2020 213 () Not Given SARS-COV- 2 (COVID-19 ) vaccine, UNSPECIFI ED DoD Influenza, injectable, quadrivalent, preservative free 0 2019 [id number] 150 Seqirus (SEQ) complet ed Influenza , injectabl e, quadrival ent, preservat cely free DoD Influenza, injectable, quadrivalent, preservative free 1 2018 150 Transcribed (TRS) complet ed Influenza , injectabl e, quadrival ent, preservat cely free DoD Influenza, injectable, quadrivalent, preservative free 0 2017 [id number] 150 [employer]irus (SEQ) comple t ed Influenza , injectabl e, quadrival ent, preservat cely free DoD Human Papillomaviru s 9-valent vaccine 3 2017 [id number] 165 Merck (MSD) complet ed Human Papilloma virus 9-valent vaccine DoD Human Papillomaviru s 9-valent vaccine 2 2017 [id number] 165 Merck (MSD) complet ed Human Papilloma virus 9-valent vaccine DoD hepatitis A and hepatitis B vaccine 3 2016 [id number] 104 [facility] ([facility]) complet ed hepatitis A and hepatitis B vaccine DoD Human Papillomaviru s 9-valent vaccine 1 2016 [id number] 165 Merck (MSD) complet ed Human Papilloma virus 9-valent vaccine DoD Influenza, injectable, quadrivalent, preservative free 0 2016 [id number] 150 [facility] ([facility]) complet ed Influenza , injectabl e, quadrival ent, preservat cely free DoD hepatitis A and hepatitis B vaccine 1 2016 [id number] 104 [facility] ([facility]) complet ed hepatitis A and hepatitis B vaccine DoD measles, mumps and rubella virus vaccine 1 2016 [id number] 03 Merck (MSD) complet ed measles, mumps and rubella virus vaccine DoD hepatitis A and hepatitis B vaccine 1 2016 [id number] 104 [facility] ([facility]) complet ed hepatitis A and hepatitis B vaccine DoD poliovirus vaccine, inactivated 1 2016 [id number] 10 Sanofi Pasteur ([facility]) complet ed polioviru s vaccine, inactivat ed DoD meningococcal polysaccharid e (groups A, C, Y and W-135) diphtheria toxoid conjugate vaccine (MCV4P) 1 2016 [id number] 114 Sanofi Pasteur ([facility]) complet ed meningoco ccal polysacch aride (groups A, C, Y and W-135) diphtheri a toxoid conjugate vaccine (MCV4P) DoD tetanus toxoid, reduced diphtheria toxoid, and acellular pertu is vaccine, adsorbed 1 2016 [id number] 115 [facility] tetanus toxoid, reduced diphtheri a toxoid, and acellular pertussis vaccine, adsorbed DoD Influenza, seasonal, injectable, preservative free 1 2016 [id number] 140 Seqirus (SEQ) comple t ed Influenza , seasonal, injectabl e, preservat cely free DoD Adenovirus, type 4 and type 7, live, oral 1 2016 [id number] 143 [facility] (BRR) complet ed Adenoviru s, type 4 and type 7, live, oral DoD measles virus vaccine 0 2016 05 () Not Given measles virus vaccine DoD mumps virus vaccine 0 2016 07 () Not Given mumps virus vaccine DoD varicella virus vaccine 0 2016 21 () Not Given varicella virus vaccine DoD Encounters Combined list of: 1) Encounters from Department of Veterans Affairs facilities going backup to the last 18 months, not all VA inpatient encounters are included; 2) Encounters from the Department of Defense facilities going backup to 280 months. Location Location Details Encounter Type Encounter Number Reason For Visit Attending Provider ADM Date DC Date Status Disposition [place] [address](Hea ring Conservat ion, BMT) OUTPATIENT [id number] ZAK FITZGERALD I 11/11 [facility]ased w/o Limitations [facility] [place] [address](H earing Conserv ation, BMT) [place] [address]([facility]) OUTPATIENT [id number] Notes Entered by: TOR BAEZA 12 Nov 2016 1248 ------- ------- ------- ------- -- Strep prophyl axis SYDNIE BAEZA 11/12 [facility] w[facility] Limitations [facility] [place] [address](Critical access hospital d) [employer]([facility] OUTPATIENT [id number] Notes Entered by: Demetris BRITT 17 Feb 2017 1239 ------- ------- ------- ------- -- OUTPROC NAZ MCINTYRE 02/17 Released w/o Limitations [employer]) [facility] [employer] [place]Bas e Operation al Medicine Clin) OUTPATIENT [id number] Notes Entered by: Alberto FINN 22 Apr 2017 0818 ------- ------- ------- ------- -- Tri Service PHA Non Camacho BLACKWELLVALERIEART 04/22 Released w/o Limitations [address] [place] [address] [facility])(B ase Operati onal Medicin e Clin) [address] [place] [address])(Sco tt [facility] Fam Res Tm Green) TELE CONSULT [id number] Notes Entered by: BRIE ADAMS 16 Jun 2017 0730 ------- ------- ------- ------- -- Sx: Chrissie galindo, body aches - Van - - tsg* ROSALIE ISMS 06/[address] [place] [address])(S cott [facility] Fam Res Tm Green) [address] [place] [address])(Sco tt [facility] FAMRES Tm Blue) OUTPATIENT [id number] R eye puffy w/drain age, sinus pressur e/conge stion [id number] MAURISIO MARTINEZ 08/02 Released w/o Limitations [address] [place] [address])(S cott [facility] FAMRES Tm Blue) [address] [place] [address])(Bas e Operation al Medicine Clin) OUTPATIENT [id number] Notes Entered by: ROBBIE COWAN 05 Aug 2017 0748 ------- ------- ------- ------- -- TRI-SER NON NIHARIKA TOURE 08/05 Released w/o Limitations [address] [place] [address])(B ase Operati onal Medicin e Clin) [address] [place] [address])(Sco tt [facility] Fam Res Tm Green) TELE CONSULT [id number] Notes Entered by: JARVIS MARSHALL RET 13 Sep 2017 0710 ------- ------- ------- ------- -- [facility] FU/Andres e/ ROBBIE Maddox 09/13 Referred for Appointment [address] [place] [address] [facility]S cott [facility] Fam Res Tm Green) [address] [place] [address] [facility]Sco tt [facility] FAMRES Tm Blue) OUTPATIENT [id number] [facility] follow- up: discuss frequen t strep and possibl e tonsil removal BRENTJOSE HERNANDEZ Dominick 09/13 Released w/o Limitations [address] [place] [address] Stanley [facility])(S cott [facility] FAMRES Tm Blue) [address] [place] [address] [facility])(Sco tt [facility] Fam Res Tm Green) TELE CONSULT [id number] Notes Entered by: DESIRAE SCHMITZ 13 Dec 2017 0922 ------- ------- ------- ------- -- Jade bonilla/olaf -JAMES RS REQUEST -[place] [facility] -Van- [phone] ROSALIE SIMS 12/[address] [place] [address] Stanley [facility])(S cott [facility] Fam Res Tm Green) [address] [place] [address])(Sco tt [facility] Fam Res Tm Green) OUTPATIENT [id number] cough, scratch y throat, fatigue d NIHARIKA PEREA 02/21 Released w/o Limitations [address] [place] [address] Stanley [facility])(S cott [facility] Fam Res Tm Green) [address] [place] [address] Stanley [facility])(Sco tt [facility] Fam Res Tm Green) TELE CONSULT [id number] Notes Entered by: PAVEL BURTON 23 Feb 2018 1219 ------- ------- ------- ------- -- Sx - Cough and Headach e/Spark s/ ROSALIE SIMS 02/[address] [place] [address] Stanley [facility])(S cott [facility] Fam Res Tm Green) [address] [place] [address] [facility])(Sco tt [facility] Fam Res Tm Green) TELE CONSULT [id number] Notes Entered by: CHOCO OLIVA 13 Mar 2018 1401 ------- ------- ------- ------- -- ER F/U / Choi / - sgj ROSALIE SIMS 03/[address] [place] [address])(S cott [facility] Fam Res Tm Green) [address] [place] [address])(Sco tt [facility] Fam Res Tm Green) OUTPATIENT [id number] f/u er visit, brown colored urine, testing neg MICHELLE CHOI 03/21 Released w/o Limitations [address] [place] [address])(S cott [facility] Fam Res Tm Green) [address] [place] [address])(Sco tt [facility] Fam Res Tm Green) OUTPATIENT [id number] cough, mucus and congest ion x 7 days GAIL MARTE 06/13 Released w/o Limitations [address] [place] [address])(S cott [facility] Fam Res Tm Green) [address] [place] [address])(Sco tt [facility] Fam Res Tm Green) OUTPATIENT [id number] Notes Entered by: LEI CANTOR 09 Aug 2018 0911 ------- ------- ------- ------- -- Strep test ROMANA GRESHAM 08/09 Released w/o Limitations [address] [place] [address])(S cott [facility] Fam Res Tm Green) [address] [place] [address])(Sco tt [facility] FAMRES Tm Blue) OUTPATIENT [id number] x/b - Sore throat, rapid strep neg, ROGER CHATMAN 08/10 Released w/o Limitations [address] [place] [address])(S cott [facility] FAMRES Tm Blue) [address] [place] [address])(Sco tt [facility] ) TELE CONSULT [id number] Notes Entered by: ZE GAINES 22 Sep 2018 1602 ------- ------- ------- ------- -- [facility] JAYE GOODRICH 09/[address] [place] [address])(S cott [employer] [facility]) [address] [place] [address])(Bas e Operation al Medicine Clin) OUTPATIENT [id number] Notes Entered by: BOBY LYNN 25 Sep 2018 0844 ------- ------- ------- ------- -- MICHELLE GALINDO 09/25 Released w/o Limitations [address] [place] [address])(B ase Operati onal Medicin e Clin) [address] [place] [address])(Sco tt [facility] Fam Res Tm Green) TELE CONSULT [id number] Notes Entered by: PAVEL BURTON 20 Dec 2018 0715 ------- ------- ------- ------- -- Sx - sx persist - L side abdomin al pain/Sp [phone] ROSALIE SIMS 12/20 Referred for Appointment [address] [place] [address])(S cott [facility] Fam Res Tm Green) [address] [place] [address])(Sco tt [facility] Fam Res Tm Green) OUTPATIENT [id number] 3 f/u er visit for abdomin al pain, req nephrol ogy referALICIA Carter 12/20 Released w/o Limitations [address] [place] [address])(S cott [facility] Fam Res Tm Green) [address] [place] [address])(Cash e Managemen t) TELE CONSULT [id number] LUDIVINA FORTE 12/[address] [place] [address])(C ase Managem ent) [address] [place] [address])(Sco tt [facility] Fam Res Tm Green) TELE CONSULT [id number] Notes Entered by: Shar MONTANO 26 Dec 2018 0840 ------- ------- ------- ------- -- Referra TERRA Simmons 12/26 Referred for Appointment [address] [place] [address])(S cott [facility] Fam Res Tm Green) [employer] ([facility]Sco tt [facility] Fam Res Tm Green) OUTPATIENT [id number] Profile Request , back pain, GAIL MARTE 01/23 Released w/o Limitations [employer] ([facility]S cott OF Fam Res Tm Green) [employer] ([facility]Sco tt [facility] Fam Res Tm Green) TELE CONSULT [id number] Notes Entered by: Mony BUITRAGO [facility] 24 Jan 2019 0204 ------- ------- ------- ------- -- C-code and DAWG update ALICIA BUITRAGO 01/24 Referred for Appointment [employer] Stanley [employer]CI[employer] [facility])(S cott [facility] Fam Res Tm Green) [facility] [employer] [facility])(Sco tt [facility] Fam Res Tm Green) OUTPATIENT [id number] Back pain issues - Profile Update SARA HUBBARD 05/23 Released w/o Limitations [facility] [employer] [facility])(S cott [facility] Fam Res Tm Green) [facility] [employer] [facility])(Sco tt [facility] Fam Res Tm Green) TELE CONSULT [id number] Notes Entered by: SANNA SO 28 May 2019 1419 ------- ------- ------- ------- -- Quarter s not in system/ Choi/ SARA HUBBARD 05/28 Referred for Appointment [employer] [facility])(S cott [facility] Fam Res Tm Green) [facility] [employer] [facility])(Sco tt [facility] FAMRES Tm Blue) OUTPATIENT [id number] Notes Entered by: LEI CANTOR 06 Jul 2019 1052 ------- ------- ------- ------- -- Strep test AUSTYN QUIROZ 07/06 Released w/o Limitations [address] [place] [address] [employer] [facility]S cott [facility] FAMRES Tm Blue) [address] [place] [address] Stanley DIVINAJeovanny ([facility]Sco tt [facility] Fam Res Tm Green) OUTPATIENT [id number] profile follow up for back pain DORITA JT Renetta 07/11 Released w/o Limitations [address] [place] [address] [employer] ([facility]S cott [facility] Fam Res Tm Green) [address] [place] [address] [employer] ([facility]co tt [facility] Fam Res Tm Green) OUTPATIENT [id number] f/u physica l thy back pain ALICIA BUITRAGO 07/23 Released w/o Limitations [address] [place] [address] [employer] ([facility]S cott [facility] Fam Res Tm Green) [address] [place] [address] [employer] ([facility])(Phy sical Therapy) OUTPATIENT [id number] 3 back INDIO MULLIGAN 07/24 Released w/o Limitations [address] [place] [address] [employer] ([facility])(P hysical Therapy ) [address] [place] [address] Stanley [place] [facility])(Sco tt [facility] Fam Res Tm Green) TELE CONSULT [id number] Notes Entered by: CHOCO OLIVA 05 Oct 2019 0951 ------- ------- ------- ------- -- SX - SX Persist - Not Better / [facility] F/U / Quarter s / Steph / - sgj JEM LONGORIA 10/05 Sick at Home/Quarter s [address] [place] [address] [place] [employer] [facility])(S [facility] Fam Res Tm Green) [address] [place] [address] [employer] [facility])(Bas e Operation al Medicine Clin) OUTPATIENT [id number] DOD SAMI KELLY 12/27 Released w/o Limitations [address] [place] [address] [place] [employer] [facility])(B ase Operati onal Medicin e Clin) [address] [place] [address] [place] [employer] [facility])(Dep loyment Health Assessmen ts) OUTPATIENT [id number] JAYE VERMA 12/27 Released w/o Limitations [address] [place] [address] [place] [employer] [facility])(D eplograce Health Assessm ents) [address] [place] [address] [place] [employer] [facility])(Sco tt [employer]) OUTPATIENT [id number] Notes Entered by: BOBY MARQUES 03 Feb 2021 1035 ------- ------- ------- ------- -- [facility] BOBY MARQUES 02/03 Released w/o Limitations [address] [place] [address] Stanley [facility])(S cott [employer] [facility]) [address] [place] [address] Stanley [facility])(Bas e Operation al Medicine Clin) OUTPATIENT [id number] [facility] SAMI SMITH 02/10 Released w/o Limitations [address] [place] [address])(B ase Operati onal Medicin e Clin) [address] [place] [address])(War rior Op Med Cln Tm A Ad) TELE CONSULT [id number] Notes Entered by: JUDY SALOMON 16 Apr 2021 1355 ------- ------- ------- ------- -- Med Board Inquiry / Pancho / - RAMIRO Crawford 04/16 Advice Assessment [address] [place] [address] Stanley [facility])(W arrior Op Med Cln Tm A Ad) [address] [place] [address] Stanley [facility])(War rior Op Med Cln Tm A Ad) TELE CONSULT [id number] Notes Entered by: JARVIS MARSHALL RET 05 May 2021 1407 ------- ------- ------- ------- -- Appt Request for Narcisa sandovali on/Candido in/304. [phone] 9*CAESAR Chandler 05/05 Referred for Appointment [address] [place] [address])(W arrior Op Med Cln Tm A Ad) [address] [place] [address])(War rior Op Med Cln Tm A Ad) OUTPATIENT [id number] Religio us vaccine excempt ion and low blood sugar symtpom s F2F ANATOLY ARMSTRONG 06/01 Released w/o Limitations [address] [place] [address] [facility]W arrior Op Med Cln Tm A Ad) [address] [place] [address] Stanley [facility])(War rior Op Med Cln Tm A Ad) TELE CONSULT [id number] Notes Entered by: Amanda ARMSTRONG 02 Jun 2021 1638 ------- ------- ------- ------- -- CBC results ANATOLY ARMSTRONG 06/02 Released to Self [facility] [address] [place] [address] [facility])(W arrior Op Med Cln Tm A Ad) [address] [place] [address])(Aud iology Procedure s) OUTPATIENT [id number] Shpe TATIANA YOUNG 09/10 Released w/o Limitations [address] [place] [address] Stanley [facility])(A udiolog y Procedu res) [address] [place] [address] Stanley [facility])(War rior Op Med Cln Tm A Ad) OUTPATIENT [id number] SHPE MATTHIEUMARY ANNE SARAI V 10/05 Released w/o Limitations [address] [place] [address] Stanley [facility])(W arrior Op Med Cln Tm A Ad) Procedures Combined list of: 1) Procedures from Department of Veterans Affairs facilities going back up to thelast 18 months, not all VA non-surgical procedures are included; 2) All procedures from the Department of Defense facilities. Procedure Procedure Type Code Date Perfomer Comments Ailin e PURE TONE AUDIOMETRY (THRESHOLD), AUTOMATED; AIR ONLY 11/11/2016 DoD ADMINISTRATION OF PATIENT-FOCUSED HEALTH RISK ASSESSMENT INSTRUMENT (EG, HEALTH HAZARD APPRAISAL) WITH SCORING AND DOCUMENTATION, PER STANDARDIZED INSTRUMENT 10/06/2021 DoD PURE TONE AUDIOMETRY (THRESHOLD), AUTOMATED; AIR ONLY 09/10/2021 DoD BRIEF EMOTIONAL/BEHAVIORAL ASSESSMENT (EG, DEPRESSION INVENTORY, ATTENTION-DEFICIT/HYPERACTIVI TY DISORDER [ADHD] SCALE), WITH SCORING AND DOCUMENTATION, PER STANDARDIZED INSTRUMENT 06/11/2021 D oD TELE ASSESS & MGT SRV PROV QUAL NONPHYS HLTH CARE PRO TO EST PAT,PARENT,GUARD NOT ORIG REL ASSESS & MGT SRV PROV W/IN PREV 7 DAYS NOR LEAD ASSESS & MGT SRV/PX W/IN NXT 24 HR/SOON APT;5-10 MIN MED DIS 05/05/2021 DoD ADMINISTRATION OF PATIENT-FOCUSED HEALTH RISK ASSESSMENT INSTRUMENT (EG, HEALTH HAZARD APPRAISAL) WITH SCORING AND DOCUMENTATION, PER STANDARDIZED INSTRUMENT 02/03/2021 [facility] ADMINISTRATION OF PATIENT-FOCUSED HEALTH RISK ASSESSMENT INSTRUMENT (EG, HEALTH HAZARD APPRAISAL) WITH SCORING AND DOCUMENTATION, PER STANDARDIZED INSTRUMENT 01/07/2020 [facility] THERAPEUTIC PROCEDURE, 1 OR MORE AREAS, EACH 15 MINUTES; THERAPEUTIC EXERCISES TO DEVELOP STRENGTH AND ENDURANCE, RANGE OF MOTION AND FLEXIBILITY 07/24/2019 [facility] CULTURE, PRESUMPTIVE, PATHOGENIC ORGANISMS, SCREENING ONLY 07/06/2019 [facility] PSYCHIATRIC EVALUATION OF HOSPITAL RECORDS, OTHER PSYCHIATRIC REPORTS, PSYCHOMETRIC AND/OR PROJECTIVE TESTS, AND OTHER ACCUMULATED DATA FOR MEDICALDIAGNOSTIC PURPOSES 02/06/2019 [facility] CASE MANAGEMENT, EACH 15 MINUTES 12/22/2018 [facility] ONLINE ASSESS &MANAG SERV PROVIDE,A QUAL NONPHYS HCP TO AN ESTABLISHED PAT/GUARDIAN,NOT ORIGINAT FR RELAT ASSESS &MANAG SERV PROVIDE W/IN THE PREV 7 DAYS,USE THE [employer] NETWORK 09/22/2018 [facility] CULTURE, PRESUMPTIVE, PATHOGENIC ORGANISMS, SCREENING ONLY 08/09/2018 DoD TELE ASSESS & MGT SRV PROV QUAL NONPHYS HLTH CARE PRO TO EST PAT,PARENT,GUARD NOT ORIG REL ASSESS & MGT SRV PROV W/IN PREV 7 DAYS NOR LEAD ASSESS & MGT SRV/PX W/IN NXT 24H/SOON APT; 11-20 MIN MED DIS 03/13/2018 DoD TELE ASSESS & MGT SRV PROV QUAL NONPHYS HLTH CARE PRO TO EST PAT,PARENT,GUARD NOT ORIG REL ASSESS & MGT SRV PROV W/IN PREV 7 DAYS NOR LEAD ASSESS & MGT SRV/PX W/IN NXT 24H/SOON APT; 11-20 MIN MED DIS 02/23/2018 DoD TELE ASSESS & MGT SRV PROV QUAL NONPHYS HLTH CARE PRO TO EST PAT,PARENT,GUARD NOT ORIG REL ASSESS & MGT SRV PROV W/IN PREV 7 DAYS NOR LEAD ASSESS & MGT SRV/PX W/IN NXT 24 HR/SOON APT;5-10 MIN MED DIS 09/13/2017 DoD TELE ASSESS & MGT SRV PROV QUAL NONPHYS HLTH CARE PRO TO EST PAT,PARENT,GUARD NOT ORIG REL ASSESS & MGT SRV PROV W/IN PREV 7 DAYS NOR LEAD ASSESS & MGT SRV/PX W/IN NXT 24H/SOON APT; 11-20 MIN MED DIS 06/16/2017 DoD ADMINISTRATION OF PATIENT-FOCUSED HEALTH RISK ASSESSMENT INSTRUMENT (EG, HEALTH HAZARD APPRAISAL) WITH SCORING AND DOCUMENTATION, PER STANDARDIZED INSTRUMENT 04/22/2017 DoD Social History Combined list of available smoking, tobacco, and other social history from Department of Defense and Veterans Affairs facilities. Social History Type Response Date Comment Sourc e This section is an empty social history section. DoD
--- OUTSIDE RECORDS SUMMARY | 2024-10-05 16:08 | XMS_ITS ---
Author Organization Unknown Address [address], [place] [phone] Phone Care Team Providers Care Export Freight Clerk Name Role Phone JUVENTINO Dominguez Attending Unavailable ROSE TIWARI Primary Unavailable Results FOOT ROUT (R) 3 V OR > ROUTI NE - Completed: 03/24/2024 19:32 LOINC: EXAMINATION: FOOT ROUT (R) 3 V OR > ROUTINEHISTORY: PainDATE: 03/24/2024 7:18 PMCOMPARISON: NoneTECHNIQUE: AP, oblique and lateral views of the right foot. 3 images.FINDINGS: No acute fracture identified. No dislocation. Mild hallux valgus. Joint spaces are unremarkable. Bone island in the anterior talus.IMPRESSION: No acute findings. Created and Electronically Signed by:Ned Trujillo MD03/24/2024 19:33 Social History Type Status Start Date End Date Code Code Syst em Smoking History Unknown if ever smoked [id number] Sex Male Medications Medication Start Date End Date Route Frequency Dose Code Code System Medication Instructions Home Meds Bactrim DS 800MG-160MG Oral Tablet 07/01/2021 03/24/2024 By mouth Twice a day 1 TABLET 287291 RxNorm 1 TABLET By mouth Twice a day x 10 days Hospital Discharge Instructions Should you have any questions prior to discharge, please contact a member of your healthcare team. If you have left the hospital and have any questions, please contact your primary care physician. Reason For Referral No Data Found Allergies and Adverse Reactions Allergy Substance Reaction Severity Start Date Concern Status Co de Code System PCN (penicillin) Active 0715049 SNOMED- CT Plan of Treatment No Data Found Encounters Encounter Diagnosis Start Date Code Code Sys tem Idiopathic gout, right ankle and foot 03/24/2024 SNOMED-CT Personal Care Team Section Performer Name Performer Role Active Date Inactive Da te Imaging Narrative Notes Progress Notes [facility] 03/24/2024 19:44 Clinical Report - Physicians/Mid Levels [facility] Emergency Department [address] [place] [id number] Patient: CACHORRO JIMENES Sex: M : 1995 Age: 29y Arrrival: 03/24/2024 18:59 Departure: 03/24/2024 19:42 Disposition: Discharge Time Seen: (19:09). Arrived- By private vehicle. Historian- patient. Disposition decision: 19:38 03/24/2024. HISTORY OF PRESENT ILLNESS Chief Complaint: LOWER EXTREMITY PAIN and SWELLING and ; ;(right toe pain). This started about 1 weeks ago and is still present (persistent). It was gradual in onset and has been waxing/waning. Severity is described as being (mild-moderate). The quality is noted to be dull and aching. No radiation. Not relieved by anything- worsened by standing and walking. The patient has had redness and swelling. No difficulty walking. No bladder dysfunction, bowel dysfunction, sensory loss or motor loss. ( He denies known injury, fevers or rapidly spreading redness.). Patient denies an injury. Similar symptoms previously. None. Recent medical care: Not recently seen/assessed. REVIEW OF SYSTEMS No cough, chest pain, difficulty breathing, fever or skin rash. No headache, abdominal pain, vomiting, diarrhea or black stools. No difficulty with urination or bloody stools. PAST HISTORY Problems: Congenital Single Kidney. Myalgias. Additional Surgeries: Tonsillectomy. Medications: None. Allergies: Penicillins. Moderate. SOCIAL HISTORY Never smoker. No alcohol use or drug use. FAMILY HISTORY No significant family medical history. ADDITIONAL NOTES The nursing notes have been reviewed. Clinical Report - Physicians/Mid Levels [facility] Emergency Department [address] [place] [id number] Patient: CACHORRO JIMENES Sex: M : 1995 Age: 29y Arrrival: 03/24/2024 18:59 Departure: 03/24/2024 19:42 Disposition: Discharge PHYSICAL EXAM Vital Signs: Have been reviewed. Appearance: Alert. Oriented X3. No acute distress. CVS: Normal heart rate and rhythm. Heart sounds normal. Respiratory: No respiratory distress. Painless inspiration. Breath sounds normal. Skin: Skin intact. Skin warm and dry. Normal skin color. Normal skin turgor. Extremities: Right foot: mild erythema, tenderness and swelling located in the first toe(s). Neurovascular intact distally. (at the 1st MTP). No laceration, abrasion, ecchymosis, puncture wound or foreign body. No deformity. No avulsion. No limitation of weight bearing. No signs of infection involving the lower extremities. Extremities otherwise negative. Gait: No limping gait. Neuro: Oriented X 3. No motor deficit. No sensory deficit. LABS, X-RAYS, AND EKG Diagnostic Tests: Diagnostic tests have been ordered, with results reviewed and considered in the medical decision making process. Laboratory Tests: Foot R 3V: (RINA: 03/24/2024 19:22) ( MsgRcvd 03/24/2024 19:35) Final results Exam FOOT ROUT (R) 3 V OR > ROUTINE 1 [place] [address] RADIOLOGY REPORT NAME: NUMBER: SEX: AGE: ADMIT: SERVICE: Type: CACHORRO JIMENES [id number] M 29 03/24/24 E 3 DATE OF : 1995 M/R#: [id number] HOME PHONE: [phone] RM: 179 CELL PHONE: [phone] ACCESSION NUMBER: [id number] FOOT ROUT (R) 3 V OR > ROUTINE COMPLETE: 03/24/2024 19:32 SLB ATTENDING PHYSICIAN: ROSALES CARRASCO SECOND PHYSICIAN: TE MERRILL DICTATING PHYSICIAN: Ned Trujillo MD PRIMARY CARE PHYSICIAN: TE MERRILL Unsigned transcriptions represent a preliminary report and do not represent a medical or legal document EXAMINATION: FOOT ROUT (R) 3 V OR > ROUTINE HISTORY: Pain DATE: 03/24/2024 7:18 PM COMPARISON: None TECHNIQUE: AP, oblique and lateral views of the right foot. 3 images. FINDINGS: No acute fracture identified. No dislocation. Mild hallux valgus. Joint spaces are unremarkable. Bone island in the anterior talus. IMPRESSION: No acute findings. Clinical Report - Physicians/Mid Levels [facility] Emergency Department [address] [place] [id number] Patient: CACHORRO JIMENES Sex: M : 1995 Age: 29y Arrrival: 03/24/2024 18:59 Departure: 03/24/2024 19:42 Disposition: Discharge Created and Electronically Signed by: Ned Trujillo MD 03/24/2024 19:33 . PROGRESS AND PROCEDURES Course of Care: 19:36 03/24/24. (X-ray not concerning for fracture, dislocation or other acute bony process. The patient's exam appears consistent with gout. Considering is congenital single kidney, I recommended Tylenol for pain and follow up with his primary care doctor. I discussed return and emergency precautions including signs/symptoms of septic arthritis and neurovascular compromise. The patient voiced understanding and is comfortable with the plan. All questions answered to his satisfaction.). Differential Diagnosis: Other possible considerations: Gout, fracture, arthritis, other. Medical Decision Makin:10 Mar 24 2024. Plan: pain control, imaging, reassess. Disposition: Discharged home in stable condition. Condition: stable. CLINICAL IMPRESSION Acute nontraumatic pain in the right lower extremity (foot). Acute idiopathic gout involving the right great toe. INSTRUCTIONS (You were seen in the emergency department. Your x-ray was not concerning for fracture or dislocation. I suspect gout. I recommend Tylenol for pain and follow-up with your primary care doctor. If you develop Fevers with rapidly spreading redness and worsening pain, the toe appears blue/cold or if you have other emergent concerns for life, limb or eyesight, return to the emergency department.). Follow-up: Follow up with doctor Merrill in about two weeks. Call for an appointment. Understanding of the discharge instructions verbalized by patient. (Electronically signed by Rosales Carrasco MD 03/24/2024 19:42) Clinical Report - Physicians/Mid Levels [facility] Emergency Department [address] [place] [id number] Patient: CACHORRO JIMENES Sex: M : 1995 Age: 29y Arrrival: 03/24/2024 18:59 Departure: 03/24/2024 19:42 Disposition: Discharge
--- OUTSIDE RECORDS SUMMARY | 2024-10-05 16:08 | XMS_ITS | Referral Summary ---
Author Organization [facility] Address [address] [place] [address] Care Team Providers Care Environmental Journalist Name Role Phone Yoel Nieves MD Primary Care Provider [phone] Source Comments [facility],non[facility] Affiliates and Associated Physician Practices is amultiple site organization consisting of ambulatory clinics and hospital sitesin [place], [place], [place] and [place]. This disclosure is being madepursuant to the Care Everywhere program and may not contain all information available regarding this patient. Last updated 18.[facility] Allergies Active Allergy Reactions Criticality Noted Date [...] 11/10/2016 POLIO IPV 11/04/2016 TDAP (7yrs+) 11/04/2016 Social History Tobacco Use Types Packs/Day Years [...] 05/08/2024 11:05 AM CDT Plan of Treatment Not on file Care Teams Environmental Journalist Relationship Specialty Start Date End Date Yoel Nieves MD [address] [id number] PCP - General Family Medicine 03/29/24
--- OUTSIDE RECORDS SUMMARY | 2024-10-05 16:08 | XMS_ITS ---
Author Organization Unknown Address [address], [place] [phone] Phone Care Team Providers Care Fender Repairer Name Role Phone SUSAN Willson Attending Unavailable ALE MORE Primary Unavailable ROSE TIWARI Secondary Unavailable Social History Type Status Start Date End Date Code Code Syst em Smoking History Unknown if ever smoked [id number] Sex Male Medications Medication Start Date End Date Route Frequency Dose Code Code System Medication Instructions Home Meds Bactrim DS 800MG-160MG Oral Tablet 07/01/2021 03/24/2024 By mouth Twice a day 1 TABLET 226167 RxNorm 1 TABLET By mouth Twice a [...] Co de Code System PCN (penicillin) Active 1931107 SNOMED- CT Plan of Treatment No Data Found Encounters Encounter Diagnosis Start Date Code Code Sys tem Viral infection, unspecified 01/10/2023 SNOMED-CT Personal Care Team Section Performer Name Performer Role Active Date Inactive Da te
--- NOTE | 2024-10-05 16:09 | ED_ITS ---
HPI - URI/Sore Throat General Chief Complaint: Upper Respiratory Infection <Ethel Lee PA-C - Last Filed: 10/05/24 16:10> Stated Complaint: flu A+ w/ no improvement in fever <Ethel Lee PA-C - Last Filed: 10/05/24 16:10> Time Seen by Provider: 10/05/24 17:44 <Ethel Lee PA-C - Last Filed: 10/05/24 16:10> Focused HPI: 29-year-old male with no past medical history presents to the emergency department for worsening flu-like symptoms and chest discomfort that started today. Patient states he was diagnosed with influenza a at a clinic on Tuesday. Since then he has had increasing symptoms including nausea, shortness of breath, cough, diarrhea that started yesterday. States he has been having fevers at home taking Tylenol and DayQuil and NyQuil with minimal improvement. He also states today while in bed he felt a ?bubble? in his chest. States this has happened several times and he is unsure if this is due to acid reflux or his heart. GENERAL: Well-appearing, well-nourished, and in no acute distress. HEAD: Normocephalic, atraumatic. CHEST: Clear to auscultation. ?No respiratory distress. HEART: Regular rate and rhythm.? NEURO: ?Alert and oriented x3. Patient screened in triage and initial orders placed.? ?Additional care and disposition to be based upon?diagnostic testing and treatment. <Ethel Lee PA-C - Last Filed: 10/05/24 16:10> History of Present Illness HPI Narrative: Agree with the HPI above. <Hector Marshall MD - Last Filed: 10/05/24 18:14> Related Data Allergies/Adverse Reactions: Allergies Allergy/AdvReac Type Severity Reaction Status Date / Time Penicillins Allergy Unknown HIVES Verified 10/05/24 17:41 <Ethel Lee PA-C - Last Filed: 10/05/24 16:10> Review of Systems 2 Review of Systems: As reviewed above in HPI. <Hector Marshall MD - Last Filed: 10/05/24 18:14> Exam 2 Narrative: GENERAL: [Well-appearing, well-nourished, and in no acute distress.] HEAD: [Normocephalic, atraumatic.] EYES: [PERRLA and EOMI.] ENT: Nares clear, no rhinorrhea or epistaxis. Mucous membranes moist. NECK: Supple. CHEST: [Clear to auscultation. No respiratory distress.] HEART: [Regular rate and rhythm]. No murmur heard. [Normal peripheral pulses.] ABDOMEN: [Soft, nondistended], [nontender], [No rigidity or guarding] EXTREMITIES: Normal range of motion. [No edema.] SKIN: Warm, dry, no rash. NEURO: [No focal deficits]. Alert and oriented [x3.] PSYCH: [Normal mood and affect.] <Hector Marshall MD - Last Filed: 10/05/24 18:14> Course Vital Signs Vital signs: Vital Signs Temperature 36.5 C 10/05/24 16:35 Pulse Rate 119 H 10/05/24 16:35 Respiratory Rate 18 10/05/24 16:35 Blood Pressure 118/73 10/05/24 16:35 Pulse Oximetry 100 10/05/24 16:35 Oxygen Delivery Room Air 10/05/24 16:35 Temperature 36.5 C 10/05/24 16:35 Pulse Rate 94 10/05/24 17:37 Respiratory Rate 17 10/05/24 17:37 Blood Pressure 119/86 10/05/24 17:37 Pulse Oximetry 100 10/05/24 17:37 Oxygen Delivery Room Air 10/05/24 17:37 <Ethel Lee PA-C - Last Filed: 10/05/24 16:10> Vital Signs Temperature 36.5 C 10/05/24 16:35 Pulse Rate 119 H 10/05/24 16:35 Respiratory Rate 18 10/05/24 16:35 Blood Pressure 118/73 10/05/24 16:35 Pulse Oximetry 100 10/05/24 16:35 Oxygen Delivery Room Air 10/05/24 16:35 Temperature 36.5 C 10/05/24 16:35 Pulse Rate 94 10/05/24 17:37 Respiratory Rate 17 10/05/24 17:37 Blood Pressure 119/86 10/05/24 17:37 Pulse Oximetry 100 10/05/24 17:37 Oxygen Delivery Room Air 10/05/24 17:37 <Hector Marshall MD - Last Filed: 10/05/24 18:14> MDM - URI/Sore Throat MDM Narrative Medical decision making narrative: 29-year-old male that recently tested positive for influenza 2 days prior coming into the ER with worsening viral syndrome like symptoms including nausea, vomiting, diarrhea, congestion and shortness of breath. He has tried [id number] medications without any significant relief of symptoms. Was prescribed Tamiflu by another provider but has not been able to fill his medication. Has been having loose watery stools but is able tolerate p.o. intake and hydrating appropriately. He has been afebrile and states he still feeling fever and chills. Vital signs reassuring here with pulse 94, no hypertension, normal respiratory rate 17, no fever or hypoxia. Given his triage complaint of shortness of breath was worsening with influenza a broad workup was ordered this time to rule out any kind of pneumonia, myocarditis or infectious process in his chest. CBC, CMP, troponin, EKG, chest x-ray obtained. He was given Zofran. Workup shows no leukocytosis or anemia. Normal platelet level. Negative troponin. Normal coagulation studies. Normal renal and hepatic function panel. Negative lipase. Chest x-ray without any concerns such as pneumonia or consolidation. EKG with normal sinus rhythm. Patient is safe and stable for discharge home at this time with symptomatic controlling medications including Toradol for myalgias, benzonatate for cough Sudafed for congestion and Zofran for as needed nausea. Patient was encouraged to follow up with his regular doctor or return with any new or worsening concerns. Patient verbalized understanding was safe for discharge. <Hector Marshall MD - Last Filed: 10/05/24 18:14> Medical Records Attestation: I reviewed the patient's medical records. <Hector Marshall MD - Last Filed: 10/05/24 18:14> Lab Data Attestation: I reviewed the patient's lab results. <Hector Marshall MD - Last Filed: 10/05/24 18:14> Result diagrams: 10/05/24 16:35 10/05/24 16:35 <Ethel Lee PA-C - Last Filed: 10/05/24 16:10> Labs: Lab Results 10/05/24 Range/Units 16:35 WBC 9.2 (4.5-10.0) K/mm3 RBC 5.07 (4.6-6.20) M/mm3 Hgb 15.3 (14.0-18.0) g/dL Hct 46.4 (42.0-52.0) % MCV 91.5 (80-100) fl MCH 30.2 (26-34) pg MCHC 33.0 (32-36) g/dl RDW 13.1 (11.5-14.5) % Plt Count 162 (150-375) k/mm3 MPV 10.4 (7.4-10.4) fl Immature Gran % (Auto) 0.3 (0-0.5) % Neut % (Auto) 73.6 H (45.5-73.1) % Lymph % (Auto) 15.5 L (18.3-44.2) % Harmon % (Auto) 10.2 H (2.6-8.5) % Eos % (Auto) 0.2 (0-4.4) % Baso % (Auto) 0.2 (0.2-1.2) % Lymph # (Auto) 1.42 (0.9-3.2) K/mm3 Harmon # (Auto) 0.9 H (0.1-0.6) K/mm3 Eos # (Auto) 0.0 (0-0.3) K/mm3 Baso # (Auto) 0.0 (0.0-0.1) K/mm3 Abs Immat Gran (auto) 0.03 (0.00-0.031) K/mm3 Absolute Neuts (auto) 6.8 H (1.3-6.7) K/mm3 Absolute Nucleated RBC 0.000 (0.0-0.012) K/mm3 Nucleated RBC % 0.0 (0.0-0.2) % PT 13.9 (11.1-14.7) Seconds INR 1.0 APTT 38.0 H (22.3-36.8) Seconds Sodium 140 (137-145) mmol/L Potassium 3.9 (3.4-5.0) mmol/L Chloride 102 (98-107) mmol/L Carbon Dioxide 26 (22-30) mmol/L Anion Gap 12 (4-12) mmol/L BUN 9 D (9-20) mg/dL Creatinine 0.90 (0.7-1.3) mg/dL Estim Creat Clear Calc 111 ml/min Estimated GFR > 60 (59 - ) Glucose 83 (65-110) mg/dL Calcium 9.1 (8.4-10.2) mg/dL Total Bilirubin 0.5 (0.2-1.3) mg/dL AST 27 (17-59) U/L ALT 23 (6-50) U/L Alkaline Phosphatase 59 (38-126) U/L Troponin I < 0.012 (0.000-0.034) ng/mL Total Protein 8.0 (6.3-8.2) g/dL Albumin 4.1 (3.5-5.1) g/dL Lipase 32 (23-300) U/L <Ethel Lee PA-C - Last Filed: 10/05/24 16:10> Lab Results 10/05/24 Range/Units 16:35 WBC 9.2 (4.5-10.0) K/mm3 RBC 5.07 (4.6-6.20) M/mm3 Hgb 15.3 (14.0-18.0) g/dL Hct 46.4 (42.0-52.0) % MCV 91.5 (80-100) fl MCH 30.2 (26-34) pg MCHC 33.0 (32-36) g/dl RDW 13.1 (11.5-14.5) % Plt Count 162 (150-375) k/mm3 MPV 10.4 (7.4-10.4) fl Immature Gran % (Auto) 0.3 (0-0.5) % Neut % (Auto) 73.6 H (45.5-73.1) % Lymph % (Auto) 15.5 L (18.3-44.2) % Harmon % (Auto) 10.2 H (2.6-8.5) % Eos % (Auto) 0.2 (0-4.4) % Baso % (Auto) 0.2 (0.2-1.2) % Lymph # (Auto) 1.42 (0.9-3.2) K/mm3 Harmon # (Auto) 0.9 H (0.1-0.6) K/mm3 Eos # (Auto) 0.0 (0-0.3) K/mm3 Baso # (Auto) 0.0 (0.0-0.1) K/mm3 Abs Immat Gran (auto) 0.03 (0.00-0.031) K/mm3 Absolute Neuts (auto) 6.8 H (1.3-6.7) K/mm3 Absolute Nucleated RBC 0.000 (0.0-0.012) K/mm3 Nucleated RBC % 0.0 (0.0-0.2) % PT 13.9 (11.1-14.7) Seconds INR 1.0 APTT 38.0 H (22.3-36.8) Seconds Sodium 140 (137-145) mmol/L Potassium 3.9 (3.4-5.0) mmol/L Chloride 102 (98-107) mmol/L Carbon Dioxide 26 (22-30) mmol/L Anion Gap 12 (4-12) mmol/L BUN 9 D (9-20) mg/dL Creatinine 0.90 (0.7-1.3) mg/dL Estim Creat Clear Calc 111 ml/min Estimated GFR > 60 (59 - ) Glucose 83 (65-110) mg/dL Calcium 9.1 (8.4-10.2) mg/dL Total Bilirubin 0.5 (0.2-1.3) mg/dL AST 27 (17-59) U/L ALT 23 (6-50) U/L Alkaline Phosphatase 59 (38-126) U/L Troponin I < 0.012 (0.000-0.034) ng/mL Total Protein 8.0 (6.3-8.2) g/dL Albumin 4.1 (3.5-5.1) g/dL Lipase 32 (23-300) U/L <Hector Marshall MD - Last Filed: 10/05/24 18:14> Imaging Data Attestation: I personally reviewed and interpreted this imaging study as follows: < Hector Marshall MD - Last Filed: 10/05/24 18:14> My impression: Impressions Chest X-Ray 10/05/24 16:50 IMPRESSION: 1. No acute cardiopulmonary disease. <Hector Marshall MD - Last Filed: 10/05/24 18:14> Discharge Plan Discharge Clinical Impression: Upper respiratory infection, Influenza A, Acute viral syndrome <Ethel Lee PA-C - Last Filed: 10/05/24 16:10> Patient Disposition: Home, Self-Care <Ethel Lee PA-C - Last Filed: 10/05/24 16:10> Condition: Stable <CELESTE Blue Last Filed: 10/05/24 16:10> Instructions: Antibiotic Form, Influenza (ED), Viral Syndrome (ED) <Ethel Lee PA-C - Last Filed: 10/05/24 16:10> Additional Instructions: you have influenza a, your symptoms very consistent with the viral syndrome associated with this illness. Your workup was very reassuring and there is no signs of any damage to organs or lungs. No pneumonia. We will send you home with a combination of things to try for symptoms including Toradol for any muscle pains and aches, Zofran for nausea, pseudoephedrine for nasal decongestion and benzonatate for cough. Take these medications as you see fit in needed. Recommendations to follow up with regular doctor at this time, return with any new or worsening concerns at any time. <Ethel eLe PA-C - Last Filed: 10/05/24 16:10> Patient Language: Latvian <Ethel Lee PA-C - Last Filed: 10/05/24 16:10> Prescriptions: New ketorolac 10 mg tablet 10 mg PO Q8H PRN (Reason: pain) 5 Days Qty: 20 0RF Rx Instructions: maximum total duration of 5 days from all oral, intranasal, or parenteral formulations ondansetron 4 mg tablet,disintegrating 4 mg PO Q8H PRN (Reason: nausea and vomiting) Qty: 10 0RF benzonatate 200 mg capsule 200 mg PO TID PRN (Reason: cough) Qty: 20 0RF pseudoephedrine HCl 30 mg tablet 30 mg PO Q4-6H PRN (Reason: nasal congestion) 5 Days Qty: 28 0RF Rx Instructions: DNExceed 4 doses/24h No Action famotidine 20 mg tablet 20 mg PO DAILY Qty: 20 0RF ondansetron 4 mg tablet,disintegrating 4 mg PO Q8H Qty: 20 0RF <Ethel Lee PA-C - Last Filed: 10/05/24 16:10> Follow-up/Referrals: UNKNOWN,DOCTOR [Primary Care Provider] - <Ethel Lee PA-C - Last Filed: 10/05/24 16:10> Time of Disposition: 18:11 <Ethel Lee PA-C - Last Filed: 10/05/24 16:10> 18:11 <Hector Marshall MD - Last Filed: 10/05/24 18:14>
--- NOTE | 2024-10-05 16:09 | ECG_ITS ---
Test Date: 2024-10-05 16:30:06 Measurements Intervals [place] Rate: 93 P: 68 MD: 139 QRS: 76 QRSD: 89 T: 48 QT: 345 QTc: 429 Interpretive Statements SINUS RHYTHM NONSPECIFIC T-WAVE ABNORMALITY- ANT/INF LEADS BASELINE ARTIFACT- V3 BORDERLINE ECG No previous ECG available for comparison Electronically Signed On 10-05-2024 19:01:37 AUTO PAINTER by Tremayne Melendez D.O.
--- OUTSIDE RECORDS SUMMARY | 2024-10-05 16:09 | XMS_ITS ---
Author Organization Unknown Address [address], [place] [phone] Phone Care Team Providers Care Children'S Minister Name Role Phone NAZARIO ASHLEY AL Attending Unavailable Social History Type Status Start Date End Date Code Code Syst em Smoking History Unknown if ever smoked [id number] Sex Male Medications Medication Start Date End Date Route Frequency Dose Code Code System Medication Instructions Home Meds Bactrim DS 800MG-160MG Oral Tablet 07/01/2021 03/24/2024 By mouth Twice a day 1 TABLET 228495 RxNorm 1 TABLET By mouth Twice a [...] Co de Code System PCN (penicillin) Active 0382787 SNOMED- CT Plan of Treatment No Data Found Encounters Encounter Diagnosis Start Date Code Code Sys tem Low back pain 07/01/2021 [id number] SNOMED-CT Personal Care Team Section Performer Name Performer Role Active Date Inactive Da michelle
--- OUTSIDE RECORDS SUMMARY | 2024-10-05 16:09 | XMS_ITS ---
Author Organization Unknown Address [address] [place] [address] [phone] Phone Care Team Providers Care Dental Services Director Name Role Phone NAZARIO RAMIREZ Attending Unavailable OTHER PHYSICIAN Primary Unavailable Immunization Immunization Date Status Additional Notes Code Code System Influenza, split virus, quadrivalent, PF 08/16/2019 Completed 150 CVX Results URINALYSIS NON-AUTO W/O MICR O - Collect Date/Time: 07/01/2021 10:45 [facility] ID: [id number] [address] [place] [address], [id number] LOINC: Test Value Unit Reference Range Code Code System Flag TEST NAME URINALYSIS Color DARK YELLOW Clarity CLEAR Spec Grav 1.005 NORMAL: 1.001-1.035 PH 8.0 NORMAL: 5 - 6 A Leuk Est + NORMAL: NEGATIVE A Nitrates Negative NORMAL: NEGATIVE Protein TRACE NORMAL: NEGATIVE A Glucose NEGATIVE NORMAL: NEGATIVE Manual Clinitest Ketones NEGATIVE NORMAL: NEGATIVE Urobilinogen NORMAL NORMAL: 0-1 mg/dl Bilirubin + NORMAL: NEGATIVE A Blood TRACE NORMAL: NEGATIVE A Social History Type Status Start Date End Date Code Code Syst em Smoking History Unknown if ever smoked [address] Sex Male Vital Signs Vital Sign Value Unit [place]or[place] Value [place]orado Unit Date/Time Recent/Initial? Code Code System Body Mass Index 23.82 kg/m2 07/01/2021 10:43 Initial 82952 -5 LOINC Systolic Blood Pressure 114 mm[Hg] 07/01/2021 10:43 Initial 8480- 6 LOINC Diastolic Blood Pressure 82 mm[Hg] 07/01/2021 10:43 Initial 8462- 4 LOINC Body Surface Area 1.97 m2 07/01/2021 10:43 Initial 3140- 1 LOINC Height 180.340 0 cm 71.00 in 07/01/2021 10:43 Initial 8302- 2 LOINC O2 Saturation 97 % 2020 10:43 Initial 24124 -5 LOINC Pulse 78.0 /min 07/01/2021 10:43 Initial 8867- 4 LOINC Temperature 37.2 Tierra 98.9 F 07/01/20 10:43 Initial 8310- 5 LOINC Weight 77.47 kg 170.80 lbs 07/01/2021 10:43 Initial 54692 -7 [facility] Medications Medication Start Date End Date Route Frequency Dose Code Code System Medication Instructions Home Meds Bactrim DS 800MG-160MG Oral Tablet 07/01/2021 03/24/2024 By mouth Twice a day 1 TABLET 069317 RxNorm 1 TABLET By mouth Twice a [...] Co de Code System PCN (penicillin) Active 8484074 SNOMED- CT Plan of Treatment Future Order Description Future Order Date Futu re Order Loinc: CULTURE URINE 07/01/2021 LOINC: 630-4 Encounters Encounter Diagnosis Start Date Code Code Sys tem Urinary tract infectious disease 07/01/2021 31720476 [facility] Personal Care Team Section Performer Name Performer Role Active Date Inactive Da te Progress Notes [facility] 07/01/2021 11:23 Final Patient Medication List New Prescriptions This Visit Bactrim DS 800MG-160MG Oral Tablet 1 TABLET Twice a day Start: 07/01/2021 00:00 Stop: 03/24/2024 19:16 Chief Complaint/Reason for Visit LOWER BACK PAIN, KIDNEY ISSUES Onset: 07/01/21 History of Present Illness General - Extended HPI: Presents ambulatory to clinic with complaint of dysuria, low back pain, and urinary frequency x 1 day. Lower back pain dull ache. 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 Discovered that he only had a left kidney in 2018 when he had a kidney infection. Denies any fever, flank pain, abdominal or pelvic pain, or N/V/D. Denies any genital lesions, penile discharge, scrotal pain, scrotal swelling or dyspareunia. Denies any constipation or pain with bowel movements. Denies any history of prostate issues. Denies any STI concerns. , monogamous relationship for 3 years. Has been increasing water intake but admits that he mostly drinks soda and tea. Denies Hx of frequent UTI's, last UTI or kidney infection was in 2018. Denies any significant PMH. Active duty , stationed at [employer]. 1 [id number] cigarette smoker. Also uses oral tobacco. EXAM: General: Alert and orientedx 3.NAD. Healthy appearance. Rates lower back pain 4/10 at present Lungs: CTA. Respirationsnonlabored Cardiac: heart regular rhythm, rate GI/: abdomen soft, non tender. Bladder non palpable. No CVA tenderness. Declined genital exam. MS/ neuro: No spinal tenderness, full range of motion of spine, straight leg raise negative bilaterally. Skin: Warm, dry, normal color ASSESSMENT/DIAGNOSIS: 1. Acute UTI, mild 2. Acute dysuria, mild 3. Acute lower back pain, mild Differential diagnosis: pyelonephritis, Cystitis, urolithiasis, nephrolithiasis, STI, prostatitis PLAN: Diagnostics: Urinalysis, urine culture. Medications: Bactrim. Tylenol Instructions: Take/use medications as directed. Increase water, avoid caffeine, UTI prevention. stop smoking. Follow up: PCP or CC in 2 days if not improving, otherwise follow-up with PCP in 7 days. ER if any symptoms become severe or develops fever or abdominal pain. *This plan has been reviewed with the patient Questions and concerns were addressed. Patient verbalized understanding of the treatment plan and need for follow up. This examination was transcribed using [employer] voice recognition system without human risk and insurance manager. In an effort to expedite patient care, this report has not been adjusted for typographical, or medical or syntax by a trained medical technologist microbiology. Social History Drug Use History Unknown if ever smoked. Tobacco consumption unknown. Vital Signs Vital Signs/Height/Weight/O2 Therapy Temperature 98.9 F 37.2 C Temporal Scanning Pulse 78beats/minute Pulse Ox Blood Pressure 114/82 Sitting Left Arm O2 Saturation 97 % Method Room Air 21% Height 71 inches 180.340 cm Weight 170 lbs 12.8 oz 77.47 kg 88930 g Floor Scale Body Mass Index 23.82 Body Surface Area 1.97 Hemodynamic Vital Signs Mean Arterial Pressure 93 mmHg Allergies PCN (penicillin): CLASS Active Clinic Labs TEST NAME URINALYSIS Collect: 07/01/2021 10:45 Color DARK YELLOW Collect: 07/01/2021 10:45 Clarity CLEAR Collect: 07/01/2021 10:45 Spec Grav 1.005 Collect: 07/01/2021 10:45 NORMAL: 1.001-1.035 PH 8.0 Collect: 07/01/2021 10:45 NORMAL: 5 - 6 Leuk Est + Collect: 07/01/2021 10:45 NORMAL: NEGATIVE Nitrates Negative Collect: 07/01/2021 10:45 NORMAL: NEGATIVE Protein TRACE Collect: 07/01/2021 10:45 NORMAL: NEGATIVE Glucose NEGATIVE Collect: 07/01/2021 10:45 NORMAL: NEGATIVE Ketones NEGATIVE Collect: 07/01/2021 10:45 NORMAL: NEGATIVE Urobilinogen NORMAL Collect: 07/01/2021 10:45 NORMAL: 0-1 mg/dl Bilirubin + Collect: 07/01/2021 10:45 NORMAL: NEGATIVE Blood TRACE Collect: 07/01/2021 10:45 NORMAL: NEGATIVE
[2024-10-05 16:35] VITALS: BP 118/73; PULSE 119; RESP 18; TEMP 36.5; O2SAT 100
[2024-10-05] MEDS: ONDANSETRON HCL ODT 4 MG TABLET PO (16:35)
[2024-10-05 16:46] LABS: Basophils Percent Auto 0.2 % (0.2-1.2); Eosinophils Percent Auto 0.2 % (0-4.4); Hematocrit 46.4 % (42.0-52.0); Hemoglobin 15.3 g/dL (14.0-18.0); Immature Granulocyte Absolute 0.03 K/mm3 (0.00-0.031); Immature Granulocyte Percent A 0.3 % (0-0.5); Lymphocytes Absolute Auto 1.42 K/mm3 (0.9-3.2); Lymphocytes Percent Auto 15.5 % (18.3-44.2); Mean Corpuscular Hemoglobin 30.2 pg (26-34); Mean Corpuscular Volume 91.5 fl (80-100); Mean Platelet Volume 10.4 fl (7.4-10.4); Monocytes Absolute Auto 0.9 K/mm3 (0.1-0.6); Monocytes Percent Auto 10.2 % (2.6-8.5); Neutrophils Absolute Auto 6.8 K/mm3 (1.3-6.7); Neutrophils Percent Auto 73.6 % (45.5-73.1); Platelet Count Result 162 k/mm3 (150-375); Red Blood Count 5.07 M/mm3 (4.6-6.20); Red Cell Distribution Width 13.1 % (11.5-14.5); White Blood Count 9.2 K/mm3 (4.5-10.0)
[2024-10-05 16:55] LABS: Alanine Aminotransferase 23 U/L (6-50); Albumin Level 4.1 g/dL (3.5-5.1); Alkaline Phosphatase 59 U/L (38-126); Anion Gap 12 mmol/L (4-12); Aspartate Amino Transferase 27 U/L (17-59); Bilirubin,Total 0.5 mg/dL (0.2-1.3); Blood Urea Nitrogen 9 mg/dL (9-20); Calcium 9.1 mg/dL (8.4-10.2); Carbon Dioxide 26 mmol/L (22-30); Chloride 102 mmol/L (98-107); Estimated CRCL calculation 111 ml/min; Estimated Glomerular Filt Rate > 60; Glucose 83 mg/dL (65-110); Lipase 32 U/L (23-300); Potassium 3.9 mmol/L (3.4-5.0); Sodium 140 mmol/L (137-145)
[2024-10-05 17:00] LABS: Prothrombin Time 13.9 Seconds (11.1-14.7)
[2024-10-05 17:07] LABS: Troponin I < 0.012 ng/mL (0.000-0.034)
[2024-10-05 17:37] VITALS: BP 119/86; PULSE 94; RESP 17; O2SAT 100
--- OUTSIDE RECORDS SUMMARY | 2024-10-05 17:57 | XMS_ITS | Patient Health Summary ---
Author Organization [facility] Address [address] [place] [address] Care Team Providers Care Commercial Title Examiner Name Role Phone Yoel Nieves MD Primary Care Provider [phone] Note from [facility],non-owned Affiliates and Associated Physician Practices is amultiple site organization consisting of ambulatory clinics and hospital sitesin [place], [place], [place] and [place]. This disclosure is being madepursuant to the Care Everywhere program and may not contain all information available regarding this patient. Last updated 18.[facility] Allergies * Penicillins(Urticaria) -Medium Criticality Medications * [...] analytical performance characteristics have been determined by [facility] [place]. It has not been cleared or approved by the U.S. Food and Drug Administration. This assay has been validated pursuant to the CLIA regulations and is used for clinical purposes. Normetanephrine Free 58 <=148 pg/mL [facility] Comment: This test was developed and its analytical performance characteristics have been determined by [facility] [place]. It has not been cleared or approved by the U.S. Food and Drug Administration. This assay has been validated pursuant to the CLIA regulations and is used for clinical purposes. Free Metanephrine + Normetanephrine 87 <=205 pg/mL [facility] Comment: For additional information, please refer to http://education.[employer]/faq/MetFractFree (This link is being provided for informational/educatio [...] analytical performance characteristics have been determined by [facility] [place]. It has not been cleared or approved by the U.S. Food and Drug Administration. This assay has been validated pursuant to the CLIA regulations and is used for clinical purposes. Test Performed at: [facility] MAI STAFFORD MD,PHD Blood BLOOD SPECIMEN / Unknown 05/10/2024 6:47 AM CDT 05/10/2024 6:47 AM CDT Erika Yin MD LAB - CHEMISTRY OR DERABLES Performing Organization Address [facility] Co de Phone Number [facility] [address] [place], [place] [id number] * BASIC METABOLIC PANEL (BMP) (05/10/2024 6:47 AM CDT) Pathologist [facility] Glucose 86 65 - 99 mg/dL [facility] [...] 10.3 mg/dL [facility] Comment: Test Performed at: [email or web address] [place] [address] OCTAVIANO ABDUL MD Blood BLOOD SPECIMEN / Unknown 05/10/2024 6:47 AM CDT 05/10/2024 6:47 AM CDT Erika Yin MD LAB - CHEMISTRY OR DERABLES Performing Organization Address [facility] [place] [address] * TSH (05/10/2024 6:47 AM CDT) [facility] TSH 2.52 0.40 - 4.50 mIU/L [facility] Comment: Test Performed at: [email or web address] [id number] [employer] [address] OCTAVIANO ABDUL MD Blood BLOOD SPECIMEN / Unknown 05/10/2024 6:47 AM CDT 05/10/2024 6:47 AM CDT Erika Yin MD LAB - CHEMISTRY OR DERABLES Performing Organization Address [facility] [place] [address] * CORTISOL BLOOD AM (05/10/2024 6:47 AM CDT) Pathologist [facility] Cortisol AM 19.9 mcg/dL [facility] Comment: Reference Range 8 a.m. (7-9 a.m.) Specimen: 4.0-22.0 Test Performed at: [facility] [address] [place] [address] OCTAVIANO ABDUL MD Blood BLOOD SPECIMEN / Unknown 05/10/2024 6:47 AM CDT 05/10/2024 6:47 AM CDT Erika Yin MD LAB - CHEMISTRY OR DERABLES Performing Organization Address [facility] Co de Phone Number [facility] [address] [place] [address] * MRI Brain Wo Contrast (05/01/2024) Anatomical Region Laterality Modality Head Magnetic Resonan ce 05/01/2024 Fanny Ramirez INSTRUCTOR HAIRSPRING-PRODUCER ARBORIST MANAGER MR ORDERABLES * URIC ACID BLOOD (03/29/2024 10:09 AM CDT) [facility] Uric Acid 5.5 4.0 - 8.0 mg/dL [facility] Comment: Therapeutic target for gout patients: <6.0 mg/dL Test Performed at: [facility] [place] [address] OCTAVIANO ABDUL MD 03/29/2024 10:0 9 AM CDT 03/29/2024 10:09 AM CDT Vinny Merrill INSTRUCTOR HAIRSPRING-PRODUCER ARBORIST MANAGER LAB - CHEMISTR Y ORDERABLES Performing Organization Address [facility] Co de Phone Number [facility] [address] [place] [address] * HEMOGLOBIN A1C (HgbA1C) (03/29/2024 10:09 AM CDT) Only the most recent of2 resultswithin the time period is included. [facility] Hemoglobin A1c 5.3 <5.7 % of total Hgb [facility] Comment: For the purpose of screening for the presence of diabetes: <5.7% Consistent with the absence of diabetes 5.7-6.4% Consistent with increased risk for diabetes (prediabetes) > or =6.5% Consistent with diabetes This assay result is consistent with a decreased risk of diabetes. Currently, no consensus exists regarding use of hemoglobin A1c for diagnosis of diabetes in children. According to [place] Diabetes Association (ADA) guidelines, hemoglobin A1c <7.0% represents optimal control in non- diabetic patients. Different metrics may apply to specific patient populations. Standards of Medical Care in Diabetes(ADA). This test was performed on the Sunil nayeli c503 platform. Effective 11/14/23, a change in test platforms from the Grimaldo Banner Painter to the Sunil nayeli c503 may have shifted HbA1c results compared to historical results. Based on laboratory validation testing conducted at [facility], the Sunil platform relative to the Grimaldo [...] recommended. REPORT COMMENT: FASTING:NO Test Performed at: [facility] [address] OCTAVIANO ABDUL MD Blood BLOOD SPECIMEN / Unknown 03/29/2024 10:09 AM CDT 03/29/2024 10:09 AM CDT Vinny Merrill INSTRUCTOR HAIRSPRING-PRODUCER ARBORIST MANAGER LAB - CHEMISTR Y ORDERABLES [address] [address] * SED RATE AUTO (ESR) (03/29/2024 10:09 AM CDT) Erythrocyte Sedimentation Rate Westergren 2 < OR = 15 mm/h [facility] Comment: Test Performed at: [facility] [address] [place] [address] OCTAVIANO ABDUL MD Blood BLOOD SPECIMEN / Unknown 03/29/2024 10:09 AM CDT 03/29/2024 10:09 AM CDT Vinny Up Merrill INSTRUCTOR HAIRSPRING-PRODUCER ARBORIST MANAGER LAB - HEMATOLO GY ORDERABLES [facility] [address] [place] [address] * CBC WITH DIFFERENTIAL (03/29/2024 10:09 AM [...] 0.6 % [facility] Comment: Test Performed at: [facility] [place] [address] OCTAVIANO ABDUL MD Blasts [facility] nRBC [facility] Comments [facility] Comment: Test Performed at: [email or web address] [address] [facility] [employer] [address] OCTAVIANO ABDUL MD Blood BLOOD SPECIMEN / Unknown 03/29/2024 10:09 AM CDT 03/29/2024 10:09 AM CDT Vinny Merrill INSTRUCTOR HAIRSPRING-PRODUCER ARBORIST MANAGER LAB - HEMATOLO GY ORDERABLES Performing Organization Address [facility] Co de Phone Number [facility] [address] [place] [address] * (ABNORMAL) COMPREHENSIVE METABOLIC PANEL (03/29/2024 10:09 [...] 46 U/L [facility] Comment: Test Performed at: [facility] [id number] [place] [address] OCTAVIANO ABDUL MD Blood BLOOD SPECIMEN / Unknown 03/29/2024 10:09 AM CDT 03/29/2024 10:09 AM CDT Vinny Merrill APRN-PRODUCER ARBORIST MANAGER LAB - CHEMISTR Y ORDERABLES Performing Organization Address [facility] Co de Phone Number [facility] [address] [place] [address] * TSH REFLEX FREE T4 (01/12/2023 6:48 AM CDT) [facility] TSH with Reflex FT4 1.67 0.40 - 4.50 mIU/L [facility] Comment: Test Performed at: [facility] [place] [address] [place] [address] OCTAVIANO ABDUL MD Blood BLOOD SPECIMEN / Unknown 01/12/2023 6:48 AM CDT 01/12/2023 6:48 AM CDT Vinny Merrill INSTRUCTOR HAIRSPRING-PRODUCER ARBORIST MANAGER LAB - CHEMISTR Y ORDERABLES [facility] [address] [place] [address] * CULTURE URINE (01/11/2023 4:09 PM CDT) [facility] Urine Culture Routine Final report [facility] ACCOUNT BILL Result 1 [facility] ACCOUNT BILL Comment: Culture shows less than 10,000 colony forming units of bacteria per milliliter of urine. This colony count is not generally considered to be clinically significant. Urine URINE SPECIMEN OBTAINED BY CLEAN CATCH PROCEDURE / Unknown 01/11/2023 4:09 PM CDT 01/11/2023 Narrative Resulting Agency Comment Lab Testing performed at: [facility] [address] [facility] [id number] Vinny Merrill INSTRUCTOR HAIRSPRING-PRODUCER ARBORIST MANAGER LAB - MICROBIO LOGY ORDERABLES [facility] ACCOUNT BILL [address] [place] [address] * URINALYSIS - POINT OF CARE (01/11/2023 4:01 PM CDT) [facility] Clarity UA POCT CLEAR [facility] [...] UA NEG Negtive [facility] [place] [facility] UA POCT 1.010 1.002 - 1.030 [facility] Ketone UA NEG Negative [facility] Bilirubin UA POCT NEG Negative [facility] Glucose UA NEG Negative [facility] Urine URINE / Unknown 01/11/2023 4 :01 PM CDT Vinny Merrill INSTRUCTOR HAIRSPRING-PRODUCER ARBORIST MANAGER LAB - POINT OF CARE ORDERABLES [facility] [address] [address], [facility] [phone] * (ABNORMAL) STREP A SCREEN - POCT (IP) URGENT CARE (09/11/2017 10:55 AM DRESSING MACHINE OPERATOR) Strep A Rapid POCT Positive(A ) Negative [facility] POCT TESTING QC Verified Yes Yes [facility] POC T TESTING Throat ENTIRE THROAT (SURFACE REGION OF NECK) / Unknown 09/11/2017 10:55 AM DRESSING MACHINE OPERATOR Mayra Santoyo INSTRUCTOR HAIRSPRING-PRODUCER ARBORIST MANAGER LAB - POINT O F CARE ORDERABLES [facility] POCT TESTING [address] [phone] Care Teams Commercial Title Examiner Relationship Specialty Start Date End Date Yoel Nieves MD [address] [address] PCP - General Family Medicine 03/29/24
--- OUTSIDE RECORDS SUMMARY | 2024-10-05 17:57 | XMS_ITS | Referral Summary ---
Author Organization [facility] Address [address] [facility] [place] [address] Care Team Providers Care Waterproofing Mixer Name Role Phone Yoel Nieves MD Primary Care Provider [phone] Source Comments [facility],non-[facility] Affiliates and Associated Physician Practices is amultiple site organization consisting of ambulatory clinics and hospital sitesin [place], [place], [place]. This disclosure is being madepursuant to the Care Everywhere program and may not contain all information available regarding this patient. Last updated 18.[facility] Allergies Active Allergy Reactions Criticality Noted Date [...] of Treatment Not on file Care Teams Waterproofing Mixer Relationship Specialty Start Date End Date Yoel Nieves MD [address] [address] PCP - General Family Medicine 03/29/24
--- OUTSIDE RECORDS SUMMARY | 2024-10-05 17:57 | XMS_ITS | Continuity of Care Document ---
Author Name [facility] Organization [facility] Care Team Providers Care Senior Electronics Technician Name Role Phone [facility] Unavailable Unavailable Problems Combined list of problems [...] Penicillins Drug allergy (disorder) Rash active 7 [place] [address] Immunizations Combined list of available immunizations from the Department of Defense and Veterans Affairs facilities. Immunization Series Date Given Administered By Site Reaction Lot Number CVX Code Drug Mortgage Assistant Status Comments Source Influenza, injectable, quadrivalent, preservative free 1 2020 [id number] 150 [employer] (SKB) complet ed Influenza , injectabl e, quadrival ent, preservat cely free DoD SARS-COV-2 (COVID-19) vaccine, UNSPECIFIED 0 2020 213 () Not Given SARS-COV- 2 (COVID-19 ) vaccine, UNSPECIFI ED DoD Influenza, injectable, quadrivalent, preservative free 0 2019 [id number] 150 Seqirus (SEQ) complet ed Influenza , injectabl e, quadrival ent, preservat cely free DoD Influenza, injectable, quadrivalent, preservative free 1 2018 150 Transcribed (TRS) complet ed Influenza , injectabl e, quadrival ent, preservat cely free DoD Influenza, injectable, quadrivalent, preservative free 0 2017 [id number] 150 [employer] (SEQ) comple t ed Influenza , injectabl e, quadrival ent, preservat cely free DoD Human Papillomaviru s 9-valent vaccine 3 2017 [id number] 165 Merck (MSD) complet ed Human Papilloma virus 9-valent vaccine DoD Human Papillomaviru s 9-valent vaccine 2 2017 [id number] 165 Merck (MSD) complet ed Human Papilloma virus 9-valent vaccine DoD hepatitis A and hepatitis B vaccine 3 2016 [id number] 104 [facility] ([facility]) complet ed hepatitis A and hepatitis B vaccine DoD Human Papillomaviru s 9-valent vaccine 1 2016 [id number] 165 Merck (MSD) complet ed Human Papilloma virus 9-valent vaccine DoD Influenza, injectable, quadrivalent, preservative free 0 2016 [id number] 150 [facility] ([facility]) complet ed Influenza , injectabl e, quadrival ent, preservat cely free DoD hepatitis A and hepatitis B vaccine 1 2016 [id number] 104 [facility] ([facility]) complet ed hepatitis A and hepatitis B vaccine DoD measles, mumps and rubella virus vaccine 1 2016 [id number] 03 Merck (MSD) complet ed measles, mumps and rubella virus vaccine DoD hepatitis A and hepatitis B vaccine 1 2016 [id number] 104 [facility] ([facility]) complet ed hepatitis A and hepatitis B vaccine DoD poliovirus vaccine, inactivated 1 2016 [id number] 10 Sanofi Pasteur ([facility]) complet ed polioviru s vaccine, inactivat ed DoD meningococcal polysaccharid e (groups A, C, Y and W-135) diphtheria toxoid conjugate vaccine (MCV4P) 1 2016 [id number] 114 Sanofi Pasteur ([facility]) complet ed meningoco ccal polysacch aride (groups A, C, Y and W-135) diphtheri a toxoid conjugate vaccine (MCV4P) DoD tetanus toxoid, reduced diphtheria toxoid, and acellular pertu is vaccine, adsorbed 1 2016 [id number] 115 [place] complet ed tetanus toxoid, reduced diphtheri a toxoid, and acellular pertussis vaccine, adsorbed DoD Influenza, seasonal, injectable, preservative free 1 2016 [id number] 140 Seqirus (SEQ) comple t ed Influenza , seasonal, injectabl e, preservat cely free DoD Adenovirus, type 4 and type 7, live, oral 1 2016 [id number] 4 143 [employer] (BRR) complet ed [...] ADM Date DC Date Status Disposition [place] [address](Hea ring Conservat ion, BMT) OUTPATIENT [id number] ZAK FITZGERALD I 11/11 Released w/o Limitations [facility] [place] [address](H earing Conserv ation, BMT) [place] [address]([facility]) OUTPATIENT [id number] Notes Entered by: TOR BAEZA 12 Nov 2016 1248 ------- ------- ------- ------- -- Strep prophyl axis SYDNIE BAEZA 11/12 [facility] w/[facility] Limitations [facility] [place] [address]([facility]) [employer]([facility]) OUTPATIENT [id number] Notes Entered by: Demetris BRITT 17 Feb 2017 1239 ------- ------- ------- ------- -- OUTPROC NAZ MCINTYRE 02/17 Released w/o Limitations [employer]) [facility] [employer] [place]Bas e Operation al Medicine Clin) OUTPATIENT [id number] Notes Entered by: Alberto FINN 22 Apr 2017 0818 ------- ------- ------- ------- -- Tri Service PHA Non Camacho BLACKWELLVALERIEART 04/22 Released w/o Limitations [address] [place] [address] [facility])(B ase Operati onal Medicin e Clin) [address] [place] [address])(Sco tt [facility] Fam Res Tm Green) TELE CONSULT [id number] Notes Entered by: BRIE ADAMS 16 Jun 2017 0730 ------- ------- ------- ------- -- Sx: Chrissie galindo, body aches - Van - - tsg* ROSALIE SIMS 06/[address] [place] [address])(S cott [facility] Fam Res Tm Green) [address] [place] [address])(Sco tt [facility] FAMRES Tm Blue) OUTPATIENT [id number] R eye puffy w/drain age, sinus pressur e/conge stion [id number] MAURISIO MARTINEZ 08/02 Released w/o Limitations [address] [place] [address])(S cott [facility] FAMRES Tm Blue) [address] [place] [address])(Bas e Operation al Medicine Clin) OUTPATIENT [id number] Notes Entered by: ROBBIE COWAN 05 Aug 2017 0748 ------- ------- ------- ------- -- TRI-SER NON NIHARIKA TOURE 08/05 Released w/o Limitations [address] [place] [address])(B ase Operati onal Medicin e Clin) [address] [place] [address])(Sco tt [facility] Fam Res Tm Green) TELE CONSULT [id number] Notes Entered by: JARVIS MARSHALL RET 13 Sep 2017 0710 ------- ------- ------- ------- -- [facility] FU/Andres e/ ROBBIE Maddox 09/13 Referred for Appointment [address] [place] [address] [facility]S cott [facility] Fam Res Tm Green) [address] [place] [address] [facility]Sco tt [facility] FAMRES Tm Blue) OUTPATIENT [id number] [facility] follow- up: discuss frequen t strep and possibl e tonsil removal BRENTJOSE HERNANDEZ Dominick 09/13 Released w/o Limitations [address] [place] [address] [facility])(S cott [facility] FAMRES Tm Blue) [address] [place] [address] [facility])(Sco tt [facility] Fam Res Tm Green) TELE CONSULT [id number] Notes Entered by: DESIRAE SCHMITZ 13 Dec 2017 0922 ------- ------- ------- ------- -- Jade bonilla/olaf -JAMES RS REQUEST -[place] [facility] -Van- [phone] ROSALIE SIMS 12/[address] [place] [address] [facility])(S cott [facility] Fam Res Tm Green) [address] [place] [address])(Sco tt [facility] Fam Res Tm Green) OUTPATIENT [id number] cough, scratch y throat, fatigue d NIHARIKA PEREA 02/21 Released w/o Limitations [address] [place] [address] [facility])(S cott [facility] Fam Res Tm Green) [address] [place] [address] [facility])(Sco tt [facility] Fam Res Tm Green) TELE CONSULT [id number] Notes Entered by: PAVEL BURTON 23 Feb 2018 1219 ------- ------- ------- ------- -- Sx - Cough and Headach e/Spark s/ ROSALIE SIMS 02/[address] [place] [address] [facility])(S cott [facility] Fam Res Tm Green) [address] [place] [address] [facility])(Sco tt [facility] Fam Res Tm Green) TELE CONSULT [id number] Notes Entered by: CHOCO OLIVA 13 Mar 2018 1401 ------- ------- ------- ------- -- ER F/U / Choi / - sgj ROSALIE SIMS 03/[address] [place] [address])(S cott [facility] Fam Res Tm Green) [address] [place] [address])(Sco tt [facility] Fam Res Tm Green) OUTPATIENT [id number] f/u er visit, brown colored urine, testing neg MICHELLE CHOI 03/21 Released w/o Limitations [address] [place] [address])(S cott [facility] Fam Res Tm Green) [address] [place] [address])(Sco tt [facility] Fam Res Tm Green) OUTPATIENT [id number] cough, mucus and congest ion x 7 days GAIL MARTE 06/13 Released w/o Limitations [address] [place] [address])(S cott [facility] Fam Res Tm Green) [address] [place] [address])(Sco tt [facility] Fam Res Tm Green) OUTPATIENT [id number] Notes Entered by: LEI CANTOR 09 Aug 2018 0911 ------- ------- ------- ------- -- Strep test ROMANA GRESHAM 08/09 Released w/o Limitations [address] [place] [address])(S cott [facility] Fam Res Tm Green) [address] [place] [address])(Sco tt [facility] FAMRES Tm Blue) OUTPATIENT [id number] x/b - Sore throat, rapid strep neg, ROGER CHATMAN 08/10 Released w/o Limitations [address] [place] [address])(S cott [facility] FAMRES Tm Blue) [address] [place] [address])(Sco tt [facility] Medicine ) TELE CONSULT [id number] Notes Entered by: ZE GAINES 22 Sep 2018 1602 ------- ------- ------- ------- -- [facility] JAYE GOODRICH 09/[address] [place] [address])(S cott [employer]) [address] [place] [address])(Bas e Operation al Medicine Clin) OUTPATIENT [id number] Notes Entered by: BOBY LYNN 25 Sep 2018 0844 ------- ------- ------- ------- -- MICHELLE GALINDO 09/25 Released w/o Limitations [address] [place] [address])(B ase Operati onal Medicin e Clin) [address] [place] [address])(Sco tt [facility] Fam Res Tm Green) TELE CONSULT [id number] Notes Entered by: PAVEL BURTON 20 Dec 2018 0715 ------- ------- ------- ------- -- Sx - sx persist - L side abdomin al pain/Sp [phone] ROSALIE SIMS 12/20 Referred for Appointment [address] [place] [address])(S cott [facility] Fam Res Tm Green) [address] [place] [address])(Sco tt [facility] Fam Res Tm Green) OUTPATIENT [id number] f/u er visit for abdomin al pain, req nephrol ogy referALICIA Carter 12/20 Released w/o Limitations [address] [place] [address])(S cott [facility] Fam Res Tm Green) [address] [place] [address])(Cash e Managemen t) TELE CONSULT [id number] LUDIVINA FORTE 12/[address] [place] [address])(C ase Managem ent) [address] [place] [address])(Sco tt [facility] Fam Res Tm Green) TELE CONSULT [id number] Notes Entered by: Shar MONTANO 26 Dec 2018 0840 ------- ------- ------- ------- -- Referra TERRA Simmons 12/26 Referred for Appointment [address] [place] [address])(S cott [facility] Fam Res Tm Green) [employer] [place]Sco tt [facility] Fam Res Tm Green) OUTPATIENT [id number] Profile Request , back pain, GAIL MARTE 01/23 Released w/o Limitations [employer] ([facility]S cott OF Fam Res Tm Green) [employer] ([facility] [place] [place]Sco tt [facility] Fam Res Tm Green) TELE CONSULT [id number] Notes Entered by: Mony BUITRAGO [facility] 24 Jan 2019 0204 ------- ------- ------- ------- -- C-code and DAWG update ALICIA BUITRAGO 01/24 Referred for Appointment [employer] [facility]S cott [facility] Fam Res Tm Green) [facility] [employer] [facility]Sco tt [facility] Fam Res Tm Green) OUTPATIENT [id number] Back pain issues - Profile Update SARA HUBBARD 05/23 Released w/o Limitations [facility] [employer] [facility]S cott [facility] Fam Res Tm Green) [facility] [employer] [facility]Sco tt [facility] Fam Res Tm Green) TELE CONSULT [id number] Notes Entered by: SANNA SO 28 May 2019 1419 ------- ------- ------- ------- -- Quarter s not in system/ Choi/ SARA HUBBARD 05/28 Referred for Appointment [employer] [facility]S cott [facility] Fam Res Tm Green) [facility] [employer] [facility]Sco tt [facility] FAMRES Tm Blue) OUTPATIENT [id number] Notes Entered by: LEI CANTOR 06 Jul 2019 1052 ------- ------- ------- ------- -- Strep test AUSTYN QUIROZ 07/06 Released w/o Limitations [address] [place] [address] [employer] [facility]S cott [facility] FAMRES Tm Blue) [address] [place] [address] Stanley DIVINAJeovanny ([facility]Sco tt [facility] Fam Res Tm Green) OUTPATIENT [id number] profile follow up for back pain DORITA JT Renetta 07/11 Released w/o Limitations [address] [place] [address] [employer] ([facility]S cott [facility] Fam Res Tm Green) [address] [place] [address] [employer] [place]Sco tt [facility] Fam Res Tm Green) OUTPATIENT [id number] f/u physica l thy back pain ALICIA BUITRAGO 07/23 Released w/o Limitations [address] [place] [address] [employer] ([facility]S cott [facility] Fam Res Tm Green) [address] [place] [address] [employer] ([facility]Phy sical Therapy) OUTPATIENT [id number] back INDIO MULLIGAN 07/24 Released w/o Limitations [address] [place] [address] [employer] ([facility]P hysical Therapy ) [address] [place] [address] [employer] [facility]Sco tt [facility] Fam Res Tm Green) TELE CONSULT [id number] Notes Entered by: CHOCO OLIVA 05 Oct 2019 0951 ------- ------- ------- ------- -- SX - SX Persist - Not Better / [facility] F/U / Quarter s / Steph / - sgj JEM LONGORIA 10/05 Sick at Home/Quarter s [address] [place] [address] [employer] [facility]S [facility] Fam Res Tm Green) [address] [place] [address] [employer] [facility]Bas e Operation al Medicine Clin) OUTPATIENT [id number] DOD SAMI KELLY 12/27 Released w/o Limitations [address] [place] [address] [employer] [facility])(B ase Operati onal Medicin e Clin) [address] [place] [address] [employer] [facility])(Dep loyment Health Assessmen ts) OUTPATIENT [id number] JAYE VERMA 12/27 Released w/o Limitations [address] [place] [address] [employer] [facility])(D eplograce Health Assessm ents) [address] [place] [address] [employer] [facility])(Sco tt [employer]) OUTPATIENT [id number] Notes Entered by: BOBY MARQUES 03 Feb 2021 1035 ------- ------- ------- ------- -- [facility] BOBY MARQUES 02/03 Released w/o Limitations [address] [place] [address] [facility])(S cott [employer]) [address] [place] [address] [facility])(Bas e Operation al Medicine Clin) OUTPATIENT [id number] SAM[facility] SMITH 02/10 Released w/o Limitations [address] [place] [address])(B ase Operati onal Medicin e Clin) [address] [place] [address])(War rior Op Med Cln Tm A Ad) TELE CONSULT [id number] Notes Entered by: JUDY SALOMON 16 Apr 2021 1355 ------- ------- ------- ------- -- Med Board Inquiry / Pancho / - RAMIRO Crawford 04/16 Advice Assessment [address] [place] [address] [facility])(W arrior Op Med Cln Tm A Ad) [address] [place] [address] [facility])(War rior Op Med Cln Tm A Ad) TELE CONSULT [id number] Notes Entered by: JARVIS MARSHALL RET 05 May 2021 1407 ------- ------- ------- ------- -- Appt Request for Narcisa sandovali on/Candido in/[phone]. [phone] 9*CAESAR Chandler 05/05 Referred for Appointment [address] [place] [address])(W arrior Op Med Cln Tm A Ad) [address] [place] [address])(War rior Op Med Cln Tm A Ad) OUTPATIENT [id number] Religio us vaccine excempt ion and low blood sugar symtpom s F2F ANATOLY ARMSTRONG 06/01 Released w/o Limitations [address] [place] [address] [facility]W arrior Op Med Cln Tm A Ad) [address] [place] [address] [facility])(War rior Op Med Cln Tm A Ad) TELE CONSULT [id number] Notes Entered by: Amanda ARMSTRONG 02 Jun 2021 1638 ------- ------- ------- ------- -- CBC results ANATOLY ARMSTRONG 06/02 Released to Self Care [address] [place] [address] [facility])(W arrior Op Med Cln Tm A Ad) [address] [place] [address])(Aud iology Procedure s) OUTPATIENT [id number] Shpe TATIANA YOUNG 09/10 Released w/o Limitations [address] [place] [address] [facility])(A udiolog y Procedu res) [address] [place] [address] [facility])(War rior Op Med Cln Tm A Ad) OUTPATIENT [id number] SHPE MATTHIEUMARY ANNE SARAI V 10/05 Released w/o Limitations [address] [place] [address] [facility])(W arrior Op Med Cln Tm A [...] SCORING AND DOCUMENTATION, PER STANDARDIZED INSTRUMENT 02/03/2021 [facility] ADMINISTRATION OF PATIENT-FOCUSED HEALTH RISK ASSESSMENT INSTRUMENT (EG, HEALTH HAZARD APPRAISAL) WITH SCORING AND DOCUMENTATION, PER STANDARDIZED INSTRUMENT 01/07/2020 [facility] THERAPEUTIC PROCEDURE, 1 OR MORE AREAS, EACH 15 MINUTES; THERAPEUTIC EXERCISES TO DEVELOP STRENGTH AND ENDURANCE, RANGE OF MOTION AND FLEXIBILITY 07/24/2019 [facility] CULTURE, PRESUMPTIVE, PATHOGENIC ORGANISMS, SCREENING ONLY 07/06/2019 [facility] PSYCHIATRIC EVALUATION OF HOSPITAL RECORDS, OTHER PSYCHIATRIC REPORTS, PSYCHOMETRIC AND/OR PROJECTIVE TESTS, AND OTHER ACCUMULATED DATA FOR MEDICALDIAGNOSTIC PURPOSES 02/06/2019 [facility] CASE MANAGEMENT, EACH 15 MINUTES 12/22/2018 [facility] ONLINE ASSESS &MANAG SERV PROVIDE,A QUAL NONPHYS HCP TO AN ESTABLISHED PAT/GUARDIAN,NOT ORIGINAT FR RELAT ASSESS &MANAG SERV PROVIDE W/IN THE PREV 7 DAYS,USE THE [employer]WORK 09/22/2018 [facility] CULTURE, PRESUMPTIVE, PATHOGENIC ORGANISMS, SCREENING [...]
--- OUTSIDE RECORDS SUMMARY | 2024-10-05 17:57 | XMS_ITS | Clinical Summary ---
Author Organization [facility] Address [address] [facility] [place] [address] Care Team Providers Care Stave Block Roller Name Role Phone Yoel Nieves MD Primary Care Provider Source Comments [facility],non-[facility] Affiliates and Associated Physician Practices is amultiple site organization consisting of ambulatory clinics and hospital sitesin [place], [place], [place] and [place]. This disclosure is being madepursuant to the Care Everywhere program and may not contain all information available regarding this patient. Last updated 18.[facility] Allergies Active Allergy Reactions Criticality Noted Date [...] age to complete this topic Care Teams Stave Block Roller Relationship Specialty Start Date End Date Yoel Nieves MD [address] [phone] PCP - General Family Medicine 03/29/24
--- OUTSIDE RECORDS SUMMARY | 2024-10-05 17:57 | XMS_ITS ---
Author Organization Unknown Address [address] [place], [place] [id number] Phone Care Team Providers Care Cultural Anthropology Professor Name Role Phone SUSAN Willson Attending Unavailable ALE MORE Primary Unavailable ROSE TIWARI Secondary Unavailable Social History Type Status Start Date End Date Code Code Syst em Smoking History Unknown if ever smoked [id number] Sex Male Medications Medication Start Date End Date Route Frequency Dose Code Code System Medication Instructions Home Meds Bactrim DS 800MG-160MG Oral Tablet 07/01/2021 03/24/2024 By mouth Twice a day 1 TABLET 838145 RxNorm 1 TABLET By mouth Twice a [...] Co de Code System PCN (penicillin) Active 1743252 SNOMED- CT Plan of Treatment No Data Found Encounters Encounter Diagnosis Start Date Code Code Sys tem Viral infection, unspecified 01/10/2023 SNOMED-CT Personal Care Team Section Performer Name Performer Role Active Date Inactive Da te
--- OUTSIDE RECORDS SUMMARY | 2024-10-05 17:58 | XMS_ITS ---
Author Organization Unknown Address [address] [place] [phone] Phone Care Team Providers Care Regulatory Assistant Name Role Phone NAZARIO RAMIREZ Attending Unavailable OTHER PHYSICIAN Primary Unavailable Immunization Immunization Date Status Additional Notes Code Code System Influenza, split virus, quadrivalent, PF 08/16/2019 Completed 150 CVX Results URINALYSIS NON-AUTO W/O MICR O - Collect Date/Time: 07/01/2021 10:45 [facility] ID: [id number] [address] [place] [address], [id number] LOINC: Test Value Unit Reference Range Code [...] Smoking History Unknown if ever smoked [address] Sex Male Vital Signs Vital Sign Value Unit [place] Value [place] Unit Date/Time Recent/Initial? Code Code System Body Mass Index 23.82 kg/m2 07/01/2021 10:43 Initial 66728 -5 LOINC Systolic Blood Pressure 114 mm[Hg] 07/01/2021 10:43 Initial 8480- 6 LOINC Diastolic Blood Pressure 82 mm[Hg] 07/01/2021 10:43 Initial 8462- 4 LOINC Body Surface Area 1.97 m2 07/01/2021 10:43 Initial 3140- 1 LOINC Height 180.340 0 cm 71.00 in 07/01/2021 10:43 Initial 8302- 2 LOINC O2 Saturation 97 % 2020 10:43 Initial 02061 -5 LOINC Pulse 78.0 /min 07/01/2021 10:43 Initial 8867- 4 LOINC Temperature 37.2 [place] 98.9 F 07/01/20 10:43 Initial 8310- 5 LOINC Weight 77.47 kg 170.80 lbs 07/01/2021 10:43 Initial 71673 -7 LOINC Medications Medication Start Date End Date Route Frequency Dose Code Code System Medication Instructions Home Meds Bactrim DS 800MG-160MG Oral Tablet 07/01/2021 03/24/2024 By mouth Twice a day 1 TABLET 435133 RxNorm 1 TABLET By mouth Twice a [...] Co de Code System PCN (penicillin) Active 9718863 SNOMED- CT Plan of Treatment Future Order Description Future Order Date Futu re Order Loinc: CULTURE URINE 07/01/2021 LOINC: 630-4 Encounters Encounter Diagnosis Start Date Code Code Sys tem Urinary tract infectious disease 07/01/2021 96331290 Social Reality-CT Personal Care Team Section Performer Name Performer Role Active Date Inactive Da te Progress Notes [facility] 07/01/2021 11:23 Final Patient Medication List New [...] significant PMH. Active duty , stationed at [employer]. 1 [id number] cigarette smoker. Also uses oral tobacco. EXAM: [...] follow up. This examination was transcribed using [employer] voice recognition system without human food aide. In an effort to expedite patient care, this report has not been adjusted for typographical, or medical or syntax by a trained medical assistant supervisor. Social History Drug Use History Unknown if ever smoked. Tobacco consumption unknown. Vital Signs Vital Signs/Height/Weight/O2 Therapy Temperature 98.9 F 37.2 C Temporal Scanning Pulse 78beats/minute Pulse Ox Blood Pressure 114/82 Sitting Left Arm O2 Saturation 97 % Method Room Air 21% Height 71 inches 180.340 cm Weight 170 lbs 12.8 oz 77.47 kg 84512 g Floor Scale Body Mass Index 23.82 [...]
--- OUTSIDE RECORDS SUMMARY | 2024-10-05 17:58 | XMS_ITS ---
Author Organization Unknown Address [address], [place] [phone] Phone Care Team Providers Care Clinical Educator Name Role Phone NAZARIO ASHLEY AL Attending Unavailable Social History Type Status Start Date End Date Code Code Syst em Smoking History Unknown if ever smoked [address] Sex Male Medications Medication Start Date End Date Route Frequency Dose Code Code System Medication Instructions Home Meds Bactrim DS 800MG-160MG Oral Tablet 07/01/2021 03/24/2024 By mouth Twice a day 1 TABLET 825749 RxNorm 1 TABLET By mouth Twice a [...] Co de Code System PCN (penicillin) Active 1099429 SNOMED- CT Plan of Treatment No Data Found Encounters Encounter Diagnosis Start Date Code Code Sys tem Low back pain 07/01/2021 338038850 SNOMED-CT Personal Care Team Section Performer Name Performer Role Active Date Inactive Da michelle
--- OUTSIDE RECORDS SUMMARY | 2024-10-05 17:58 | XMS_ITS ---
Author Organization Unknown Address [address], [place] [phone] Phone Care Team Providers Care Offset Press Operator Name Role Phone JUVENTINO Dominguez Attending Unavailable [...] Smoking History Unknown if ever smoked [address] Sex Male Medications Medication Start Date End Date Route Frequency Dose Code Code System Medication Instructions Home Meds Bactrim DS 800MG-160MG Oral Tablet 07/01/2021 03/24/2024 By mouth Twice a day 1 TABLET 764769 RxNorm 1 TABLET By mouth Twice a [...] Co de Code System PCN (penicillin) Active 7660631 SNOMED- CT Plan of Treatment No Data Found Encounters Encounter Diagnosis Start Date Code Code Sys tem Idiopathic gout, right ankle and foot 03/24/2024 SNOMED-CT Personal Care Team Section Performer Name Performer Role Active Date Inactive Da te Imaging Narrative Notes Progress Notes [facility] 03/24/2024 19:44 Clinical Report - Physicians/Mid Levels [facility] Emergency Department [address] [place] [id number] Patient: CACHORRO JIMENES Sex: M : 1995 [...] been reviewed. Clinical Report - Physicians/Mid Levels [facility] Emergency Department [address] [place] [address] Patient: CACHORRO JIMENES Sex: M : 1995 [...] (R) 3 V OR > ROUTINE [address] [place] [address] RADIOLOGY REPORT NAME: NUMBER: SEX: AGE: ADMIT: SERVICE: Type: CACHORRO JIMENES [id number] M 29 03/24/24 E 3 DATE OF : 1995 M/R#: [id number] HOME PHONE: [phone] RM: 179 CELL PHONE: [phone] ACCESSION NUMBER: [id number] FOOT ROUT (R) 3 V OR > [...] acute findings. Clinical Report - Physicians/Mid Levels [facility] Emergency Department [address] [place] [id number] Patient: CACHORRO JIMENES Sex: M : 1995 [...] 03/24/2024 19:42) Clinical Report - Physicians/Mid Levels [facility] Emergency Department [address] [place] [address] Patient: CACHORRO JIMENES Sex: M : 1995 Age: 29y Arrrival: 03/24/2024 18:59 Departure: 03/24/2024 19:42 Disposition: Discharge
[2024-10-05 18:23] VITALS: BP 124/83; PULSE 89; RESP 14; TEMP 36.6; O2SAT 99
== END 2024-10-05 18:24 | disposition home or self-care (01) ==
PROVIDERS: Physician Assistant; Emergency Provider Student in an Organized Health Care Education/Training Program
DX: J10.1 Influenza due to other identified influenza virus with other respiratory manifestations (principal)
CPT/HCPCS: 36415; 71046; 80053; 83690; 84484; 85025; 85610; 85730; 93005; 99284; A9270